=== PATIENT | male | born 1995 ===

== ENCOUNTER 2017-02-01 14:34 | Emergency (ER) | payer BC, MEDICAID ==
[2017-02-01 15:05] VITALS: TEMP 97.8
--- NOTE | 2017-02-01 15:45 | ED PDOC ---
HPI: Male Pain Time Seen by Provider: 02/01/17 15:12 Chief Complaint (Nursing): Male Genitourinary Chief Complaint (Provider): penile rash History Per: Patient History/Exam Limitations: no limitations Onset/Duration Of Symptoms: Days (2) Current Symptoms Are (Timing): Still Present Associated Symptoms: denies: Fever, Chills, Nausea, Vomiting, Urinary Symptoms Additional Complaint(s): Had dysuria in December and treated as UTI with cipro. At that time he also had associated swelling and redness of glans penis. Improved after 1 day of cipro. He completed the course of cipro. Labwork also done by PMD which was negative for HIV, Chlamydia, Gonorrhea. He developed "thrush" while on cipro and was also given one dose of diflucan and it resolved. Over last 3 days feels like throat symptoms coming back, and noted red bumps to glans near meatus, but no pain or burning. PMD Katarina Past Medical History Reviewed: Historical Data, Nursing Documentation, Vital Signs Vital Signs: Last Vital Signs Temp 97.8 F 02/01/17 14:58 Pulse 78 02/01/17 14:58 Resp 15 02/01/17 14:58 BP 177/176 H 02/01/17 14:58 Pulse Ox 100 02/01/17 14:58 - Medical History PMH: No Chronic Diseases - Surgical History Surgical History: No Surg Hx - Family History Family History: States: No Known Family Hx - Allergies Allergies/Adverse Reactions: Allergies Allergy/AdvReac Type Severity Reaction Status Date / Time ciprofloxacin [From Cipro] Allergy RASH Verified 02/01/17 14:58 Review of Systems ROS Statement: Except As Marked, All Systems Reviewed And Found Negative (and as per HPI) ENT: Positive for: Throat Pain Gastrointestinal: Negative for: Nausea, Vomiting, Abdominal Pain, Diarrhea Skin: Positive for: Lesions Physical Exam - Reviewed Nursing Documentation Reviewed: Yes Vital Signs Reviewed: Yes - Physical Exam Appears: Positive for: Non-toxic, No Acute Distress Head Exam: Positive for: ATRAUMATIC, NORMOCEPHALIC Skin: Positive for: Warm, Dry ENT: Positive for: Pharynx Is (clear). Negative for: Pharyngeal Erythema, Tonsillar Exudate, Tonsillar Swelling Gastrointestinal/Abdominal: Positive for: Soft. Negative for: Tenderness Male Genital Exam: Positive for: normal genitalia, normal prostate, lesions ( pinpoint flesh colored lesions on glans near meatus, appears to normal skin topography). Negative for: bleeding, erythema, testicular tenderness (R), testicular tenderness (L), urethral discharge Lymphatic: Negative for: Adenopathy Neurologic/Psych: Positive for: Alert. Negative for: Motor/Sensory Deficits - ECG O2 Sat by Pulse Oximetry: 100 Disposition - Clinical Impression Clinical Impression: Penile lesion Counseled Patient/Family Regarding: Studies Performed, Diagnosis, Need For Followup - Disposition Referrals: Sincere Bray [Family Provider] - 02/04/17 Disposition: Routine/Home Disposition Time: 16:30 Condition: FAIR Additional Instructions: YOUR URINE TODAY WAS NORMAL YOU WILL BE CONTACTED IF YOUR BLOOD RESULTS ARE ABNORMAL. PLEASE FOLLOW UP WITH YOUR DOCTOR IN 2-3 DAYS. Instructions: Dysuria (ED)
[2017-02-01 16:19] LABS: RBC URINE 2 /hpf (0-3); URINE BILIRUBIN NEGATIVE (NEGATIVE); URINE BLOOD NEGATIVE (NEGATIVE); URINE COLOR YELLOW (YELLOW); URINE GLUCOSE (UA) NEG (Normal); URINE KETONE NEGATIVE (NEGATIVE); URINE LEUKOCYTE ESTERASE NEG Leu/uL (Negative); URINE PROTEIN NEGATIVE (NEGATIVE); URINE UROBILINOGEN 0.2-1.0 mg/dL (0.2-1.0); WBC URINE 1 /hpf (0-5)
[2017-02-01 16:45] VITALS: BP 139/81; PULSE 76; RESP 20
[2017-02-02 00:14] VITALS: O2SAT 100
== END 2017-02-01 16:45 | disposition home or self-care (01) ==
LOC: H.ER 14:34
DX: N48.9 Disorder of penis, unspecified (principal)

== ENCOUNTER 2017-02-28 23:08 | Emergency (ER) | payer BC, MEDICAID ==
[2017-02-28 23:31] VITALS: BP 147/94; PULSE 77; RESP 18; TEMP 98.9; O2SAT 100
--- NOTE | 2017-03-01 00:48 | ED PDOC ---
HPI: Male Pain Time Seen by Provider: 02/28/17 23:15 Chief Complaint (Nursing): Male Genitourinary Chief Complaint (Provider): rash History Per: Patient History/Exam Limitations: no limitations Associated Symptoms: denies: Fever, Chills, Nausea, Vomiting, Diarrhea, Loss Of Appetite, Back Pain, Chest Pain, Constipation, Urinary Symptoms Additional Complaint(s): 21yo M in ED for eval of rash to penis x 3 months-states that he was dx with yeast infection to glans of penis. had negative STI testing since his last sexual intercounter. no fever, pelvic pain nausea or vomiting. denies back pain or hemautira. admits to itching to penis and occasional burning with urination. Past Medical History Reviewed: Historical Data, Nursing Documentation, Vital Signs Vital Signs: Last Vital Signs Temp 98.9 F 02/28/17 23:28 Pulse 77 02/28/17 23:28 Resp 18 02/28/17 23:28 BP 147/94 H 02/28/17 23:28 Pulse Ox 100 02/28/17 23:28 - Medical History PMH: No Chronic Diseases - Family History Family History: States: No Known Family Hx - Home Medications Home Medications: Ambulatory Orders Medication Instructions Recorded Fluconazole [Diflucan] 150 mg PO ONCE #4 tab 03/01/17 Nystatin [Mycostatin Cream] 1 applic EXT DAILY #1 tube 03/01/17 - Allergies Allergies/Adverse Reactions: Allergies Allergy/AdvReac Type Severity Reaction Status Date / Time apple Allergy ANAPHYLAXIS Verified 02/28/17 23:28 ciprofloxacin [From Cipro] Allergy RASH Verified 02/01/17 14:58 Review of Systems ROS Statement: Except As Marked, All Systems Reviewed And Found Negative Constitutional: Negative for: Fever, Chills Genitourinary Male: Positive for: Rash. Negative for: Dysuria, Frequency, Incontinence, Hematuria, Penile Discharge, Scrotal Pain, Penile Pain Physical Exam - Reviewed Nursing Documentation Reviewed: Yes Vital Signs Reviewed: Yes - Physical Exam Appears: Positive for: Well, Non-toxic, No Acute Distress Skin: Positive for: Normal Color, Warm, DRY Cardiovascular/Chest: Positive for: Regular Rate, Rhythm Respiratory: Positive for: CNT, Normal Breath Sounds Gastrointestinal/Abdominal: Positive for: Normal Exam, Bowel Sounds, Soft. Negative for: Tenderness Male Genital Exam: Positive for: other (pt is not circumsised. ). Negative for : bleeding, epididymal tenderness, erythema, hernia mass, high riding prostate, inguinal tenderness, lesions, scrotum tenderness (R), scrotum tenderness (L), testicular tenderness (R), testicular tenderness (L), urethral discharge Back: Positive for: Normal Inspection Neurologic/Psych: Positive for: Alert, Oriented - ECG O2 Sat by Pulse Oximetry: 100 Medical Decision Making Medical Decision Making: pt most liekly with yeast infection-will treat with diflucan and nystain with f.u with urologist. Disposition - Clinical Impression Clinical Impression: Yeast infection - Patient ED Disposition Is Patient to be Admitted: No Counseled Patient/Family Regarding: Diagnosis, Need For Followup, Rx Given - Disposition Referrals: Sincere Bray [Primary Care Provider] - Disposition: Routine/Home Disposition Time: 00:50 Condition: STABLE Prescriptions: Fluconazole [Diflucan] 150 mg PO ONCE #4 tab Nystatin [Mycostatin Cream] 1 applic EXT DAILY #1 tube Instructions: Skin Yeast Infection (ED)
== END 2017-03-01 01:07 | disposition home or self-care (01) ==
LOC: H.ER 23:08
DX: B37.9 Candidiasis, unspecified (principal)

== ENCOUNTER 2017-05-01 07:07 | Inpatient (IN) | payer BC, MEDICAID ==
[2017-05-01] MEDS ORDERED: Sodium Chloride 0.9% 1,000 ML IV STA (07:46)
--- NOTE | 2017-05-01 08:43 | ED PDOC ---
HPI: Abdomen Time Seen by Provider: 05/01/17 07:15 Chief Complaint (Nursing): Abdominal Pain Chief Complaint (Provider): Abdominal pain History Per: Patient History/Exam Limitations: no limitations Onset/Duration Of Symptoms: Hrs (5 hours ago) Current Symptoms Are (Timing): Still Present Severity: Severe Additional Complaint(s): 21 y/o male presents to the ED with severe central abdominal pain, radiating to the epigastric, onset of 5 hours. Patient has experienced several episodes of vomiting and has been unable to move his bowels since yesterday. He also reports of having similar pain in the past. He denies fever, urinary symptoms, or back pain. PCP: Sincere Bray Past Medical History Reviewed: Historical Data, Nursing Documentation, Vital Signs Vital Signs: Last Vital Signs Temp 97.1 F L 05/01/17 07:16 Pulse 82 05/01/17 07:16 Resp 18 05/01/17 07:22 BP 152/92 H 05/01/17 07:16 Pulse Ox 100 05/01/17 10:26 - Medical History PMH: No Chronic Diseases - Surgical History Surgical History: No Surg Hx - Family History Family History: States: Unknown Family Hx - Social History Current smoker - smoking cessation education provided: No Ex-Smoker (has not smoked in the last 12 months): No Alcohol: None Drugs: Denies - Home Medications Home Medications: Ambulatory Orders Medication Instructions Recorded No Known Home Med 05/01/17 - Allergies Allergies/Adverse Reactions: Allergies Allergy/AdvReac Type Severity Reaction Status Date / Time apple Allergy ANAPHYLAXIS Verified 05/01/17 07:22 ciprofloxacin [From Cipro] Allergy RASH Verified 05/01/17 07:22 Review of Systems ROS Statement: Except As Marked, All Systems Reviewed And Found Negative Constitutional: Negative for: Fever Gastrointestinal: Positive for: Vomiting, Abdominal Pain (central, radiating to epigastirc), Constipation Genitourinary Male: Negative for: Dysuria Musculoskeletal: Negative for: Back Pain Physical Exam - Reviewed Nursing Documentation Reviewed: Yes Vital Signs Reviewed: Yes - Physical Exam Appears: Positive for: Non-toxic, In Acute Distress (in painful distress) Head Exam: Positive for: ATRAUMATIC Skin: Positive for: Normal Color, Warm Eye Exam: Positive for: Normal appearance, EOMI, PERRL ENT: Positive for: Normal ENT Inspection Neck: Positive for: Normal, Painless ROM, Supple Cardiovascular/Chest: Positive for: Regular Rate, Rhythm. Negative for: Murmur Respiratory: Positive for: Normal Breath Sounds. Negative for: Respiratory Distress Gastrointestinal/Abdominal: Positive for: Normal Exam, Tenderness (diffusely tender), Guarding Back: Positive for: Normal Inspection Extremity: Positive for: Normal ROM. Negative for: Pedal Edema, Deformity Neurologic/Psych: Positive for: Alert, Oriented. Negative for: Motor/Sensory Deficits - Laboratory Results Result Diagrams: 05/01/17 08:25 05/01/17 08:25 - ECG O2 Sat by Pulse Oximetry: 100 (RA) Pulse Ox Interpretation: Normal Medical Decision Making Medical Decision Making: Time: --07:44 Impression: --21 y/o with abdominal pain Plan: --CT ABD & Pelvis IV Contrast --Labs --Ed Urine Dip --Partial Thrombobin Time --Prothrombin time --chest X-ray --Morphine 2mg IV --Iv fluids --Zofran 4mg --Glucose, Blood, POC --Urinalysis labs reviewed, reveal elevated WBC, normal Hgb, lipase and LFTs CT: Accession No. : [id number] Patient Name / ID : FER NEGRON / [id number] Exam Date : 05/01/2017 09:40:09 ( Approved ) Study Comment : Sex / Age : M / 21Y Creator : Nick Naik MD Dictator : Nick Naik MD Toddler Caregiver : Home Care Giver : Nick Naik MD Approver2 : Report Date : 05/01/2017 10:23:43 My Comment : PROCEDURE: CT Abdomen and Pelvis with contrast HISTORY: diffuse severe abd pain, guarding COMPARISON: None. TECHNIQUE: Contrast dose: 95 mL Omnipaque 300 Radiation dose: Total exam DLP = 730.24 mGy-cm. This CT exam was performed using one or more of the following dose reduction techniques: Automated exposure control, adjustment of the mA and/or kV according to patient size, and/or use of iterative reconstruction technique. FINDINGS: LOWER THORAX: Unremarkable. LIVER: Unremarkable. No gross lesion or ductal dilatation. GALLBLADDER AND BILE DUCTS: Unremarkable. PANCREAS: Unremarkable. No gross lesion or ductal dilatation. SPLEEN: Unremarkable. ADRENALS: Unremarkable. No mass. KIDNEYS AND URETERS: Unremarkable. No hydronephrosis. No solid mass. VASCULATURE: Unremarkable. No aortic aneurysm. BOWEL: There is probable mechanical small bowel obstruction. Dilated loops of small bowel with liquified content are seen with a transition point identified in the lower central abdomen, best visualized on images 103-106. This is in the mid ileum. Collapsed ileal loops are seen distal to this point. There is edema of the ileal mesentery. l there is mild sigmoid diverticulosis. There is no evidence of diverticulitis. There are no other abnormal bowel loops identified. APPENDIX: Normal appendix. PERITONEUM: Unremarkable. No free fluid. No free air. LYMPH NODES: Shotty subcentimeter lymph nodes are identified within the small bowel mesenteric and medial to the cecum and ascending colon. There is no retroperitoneal or pelvic lymphadenopathy. BLADDER: Unremarkable. REPRODUCTIVE: Normal prostate BONES: No acute fracture. OTHER FINDINGS: None. IMPRESSION: Findings consistent with mechanical small bowel obstruction of the mid ileal region. No evidence of bowel perforation. No other acute abnormality identified. NGT ordered Reassess- required additional pain medicine. 1030a d/w surgical product sales consultant 1050a d/w attending surgeon Dr Grant, clinical presentation, lab results and CT findings discussed. He recommended GI consult for possibility crohns disease. Scribe Attestation: Documented by Albert Lema acting as a scribe for Dmitriy Alcocer DO. Disposition - Disposition
[2017-05-01 08:45] LABS: BASO # 0.1 K/uL (0.0-0.2); BASO % 0.4 % (0.0-2.0); EOS % 0.1 % (0.0-4.0); HEMOGLOBIN 15.7 g/dL (12.0-18.0); LYMPH # 0.9 K/uL (1.0-4.3); MEAN CELL VOLUME 87.7 fl (80.0-94.0); MEAN CORPUSCULAR HEMOGLOBIN 30.5 pg (27.0-31.0); MEAN CORPUSCULAR HGB CONC 34.8 g/dL (33.0-37.0); MEAN PLATELET VOLUME 9.5 fl (7.2-11.7); MONO # 0.5 K/uL (0.0-0.8); MONO % 2.9 % (0.0-10.0); NEUT # 14.4 K/uL (1.8-7.0); NEUT % 90.6 % (50.0-75.0); PLATELET COUNT 226 K/uL (130-400); RBC 5.13 Mil/uL (4.40-5.90); RED CELL DISTRIBUTION WIDTH 12.7 % (11.5-14.5); WHITE BLOOD COUNT 15.9 K/uL (4.8-10.8)
[2017-05-01 08:54] LABS: ALB/GLOB RATIO 1.6 (1.0-2.1); ALBUMIN 4.9 g/dL (3.5-5.0); ALT/SGPT 43 U/L (21-72); AST/SGOT 16 U/L (17-59); BLOOD UREA NITROGEN 11 mg/dl (9-20); CALCIUM 9.5 mg/dL (8.4-10.2); GFR AFRICAN-AMERICAN > 60; GFR NON-AFRICAN AMERICAN > 60; LIPASE 57 U/L (23-300)
[2017-05-01 09:15] LABS: SQUAMOUS EPITHIAL 1 /hpf (0-5); URINE BACTERIA RARE (<OCC); URINE BILIRUBIN NEGATIVE (NEGATIVE); URINE BLOOD NEGATIVE (NEGATIVE); URINE CLARITY SLIGHTY-CLOUDY (Clear); URINE COLOR YELLOW (YELLOW); URINE GLUCOSE (UA) NEG (Normal); URINE LEUKOCYTE ESTERASE NEG Leu/uL (Negative); URINE NITRATE NEGATIVE (NEGATIVE); URINE PROTEIN NEGATIVE (NEGATIVE); URINE UROBILINOGEN 0.2-1.0 mg/dL (0.2-1.0)
[2017-05-01] MEDS ORDERED: Iohexol 300 100 ML IJ ONE (09:28)
[2017-05-01] MEDS ORDERED: Sodium Chloride 0.9% 50 ML IV ONE (09:29)
--- NOTE | 2017-05-01 10:25 | CT ---
PROCEDURE: CT Abdomen and Pelvis with contrast HISTORY: diffuse severe abd pain, guarding COMPARISON: None. TECHNIQUE: Contrast dose: 95 mL Omnipaque 300 Radiation dose: Total exam DLP = 730.24 mGy-cm. This CT exam was performed using one or more of the following dose reduction techniques: Automated exposure control, adjustment of the mA and/or kV according to patient size, and/or use of iterative reconstruction technique. FINDINGS: LOWER THORAX: Unremarkable. LIVER: Unremarkable. No gross lesion or ductal dilatation. GALLBLADDER AND BILE DUCTS: Unremarkable. PANCREAS: Unremarkable. No gross lesion or ductal dilatation. SPLEEN: Unremarkable. ADRENALS: Unremarkable. No mass. KIDNEYS AND URETERS: Unremarkable. No hydronephrosis. No solid mass. VASCULATURE: Unremarkable. No aortic aneurysm. BOWEL: There is probable mechanical small bowel obstruction. Dilated loops of small bowel with liquified content are seen with a transition point identified in the lower central abdomen, best visualized on images 103-106. This is in the mid ileum. Collapsed ileal loops are seen distal to this point. There is edema of the ileal mesentery. l there is mild sigmoid diverticulosis. There is no evidence of diverticulitis. There are no other abnormal bowel loops identified. APPENDIX: Normal appendix. PERITONEUM: Unremarkable. No free fluid. No free air. LYMPH NODES: Shotty subcentimeter lymph nodes are identified within the small bowel mesenteric and medial to the cecum and ascending colon. There is no retroperitoneal or pelvic lymphadenopathy. BLADDER: Unremarkable. REPRODUCTIVE: Normal prostate BONES: No acute fracture. OTHER FINDINGS: None. IMPRESSION: Findings consistent with mechanical small bowel obstruction of the mid ileal region. No evidence of bowel perforation. No other acute abnormality identified.
[2017-05-01 10:52] LABS: BANDS 1 % (0-2); GIANT PLATELETS PRESENT; LARGE PLATELETS PRESENT; LYMPHOCYTE 10 % (20-50); MONOCYTE 4 % (0-10); NEUTROPHIL 85 % (42-75); PLATELET ESTIMATE NORMAL (NORMAL); TOTAL CELLS COUNTED 100
--- NOTE | 2017-05-01 11:32 | CP.PCM.CON ---
History of Present Illness - History of Present Illness History of Present Illness: General Surgery: Dr Grant pt is a 21M with no PMH who presents with sudden onset abdominal pain. Pt states he was sleeping and at 2AM was awoken by intense cramping abdominal pain , located mainly in the suprapubic region by radiating up to the epigastrium, 10 /10. Pt states he also had 3 episodes of emesis, primarily consisting of saliva with minimal chunks of previously eaten food. He denies any bile in the vomit but does state there were small streaks of blood after the 2nd time. He had one episode of emesis in the ED that again was just saliva. Pt states he last had a BM yesterday morning, and was passing gas throughout the day. Denies any f/c, sob or chest pain. Per ED physician pt was in extreme pain and guarding upon presentation. He has since been medicated for his discomfort. Pt reports pain is still present but now a 4/10. He was able to doze off after pain medication. PMH: none PSH: none No fam hx of GI related issues including but not limited to Crohn's, UC or cancer. Review of Systems - Review of Systems All systems: reviewed and no additional remarkable complaints except (as per HPI ) Past Patient History - Past Social History Alcohol: None Drugs: Denies - PSYCHIATRIC Hx Substance Use: No - SURGICAL HISTORY Hx Surgeries: No - ANESTHESIA Hx Anesthesia: No Meds Allergies/Adverse Reactions: Allergies Allergy/AdvReac Type Severity Reaction Status Date / Time apple Allergy ANAPHYLAXIS Verified 05/01/17 07:22 ciprofloxacin [From Cipro] Allergy RASH Verified 05/01/17 07:22 - Medications Medications: Current Medications Lactated Ringer's (Lactated Ringer's) 1,000 mls @ 100 mls/hr IV .Q10H SERENA Morphine Sulfate (Morphine) 4 mg IVP Q4 PRN PRN Reason: Pain, severe (8-10) Morphine Sulfate (Morphine) 2 mg IVP Q4 PRN PRN Reason: Pain, moderate (4-7) Ondansetron HCl (Zofran Inj) 4 mg IVP Q6 PRN PRN Reason: Nausea/Vomiting Physical Exam - Constitutional Appears: Non-toxic, No Acute Distress - Head Exam Head Exam: NORMAL INSPECTION - ENT Exam ENT Exam: Mucous Membranes Moist - Respiratory Exam Respiratory Exam: absent: Accessory Muscle Use, Respiratory Distress - Cardiovascular Exam Cardiovascular Exam: REGULAR RHYTHM. absent: Tachycardia - GI/Abdominal Exam GI & Abdominal Exam: Distended (minimally), Soft, Tenderness (suprapubic and RLQ mainly). absent: Firm, Guarding, Hernia, Mass, Rebound, Rigid - Rectal Exam Rectal Exam: Deferred - Extremities Exam Extremities exam: Negative for: calf tenderness, pedal edema - Back Exam Back exam: absent: CVA tenderness (L), CVA tenderness (R) - Neurological Exam Neurological exam: Alert, Oriented x3 - Psychiatric Exam Psychiatric exam: Normal Affect, Normal Mood - Skin Skin Exam: Dry, Intact, Normal Color, Warm Results - Vital Signs Recent Vital Signs: Last Vital Signs Temp 97.1 F L 05/01/17 07:16 Pulse 82 05/01/17 07:16 Resp 18 05/01/17 07:22 BP 152/92 H 05/01/17 07:16 Pulse Ox 100 05/01/17 10:57 - Labs Result Diagrams: 05/01/17 08:25 05/01/17 08:25 Labs: Laboratory Results - last 24 hr 05/01/17 05/01/17 05/01/17 08:25 08:25 08:25 WBC 15.9 H RBC 5.13 Hgb 15.7 Hct 45.0 MCV 87.7 MCH 30.5 MCHC 34.8 RDW 12.7 Plt Count 226 MPV 9.5 Neut % (Auto) 90.6 H Lymph % (Auto) 6.0 L Swisher % (Auto) 2.9 Eos % (Auto) 0.1 Baso % (Auto) 0.4 Neut # 14.4 H Lymph # 0.9 L Swisher # 0.5 Eos # 0.0 Baso # 0.1 Neutrophils % (Manual) 85 H Band Neutrophils % 1 Lymphocytes % (Manual) 10 L Monocytes % (Manual) 4 Platelet Estimate Normal Large Platelets Present Giant Platelets Present PT 11.0 INR 1.0 APTT 28.0 Sodium 136 Potassium 3.7 Chloride 99 Carbon Dioxide 27 Anion Gap 14 BUN 11 Creatinine 0.7 L Est GFR ( Amer) > 60 Est GFR (Non-Af Amer) > 60 Random Glucose 138 H Calcium 9.5 Total Bilirubin 0.8 AST 16 L ALT 43 Alkaline Phosphatase 85 Total Protein 8.0 Albumin 4.9 Globulin 3.1 Albumin/Globulin Ratio 1.6 Lipase 57 Urine Color Urine Clarity Urine pH Ur Specific [place] Urine Protein Urine Glucose (UA) Urine Ketones Urine Blood Urine Nitrate Urine Bilirubin Urine Urobilinogen Ur Leukocyte Esterase Urine Microscopic WBC Ur Squamous Epith Cells Urine Bacteria 05/01/17 08:25 WBC RBC Hgb Hct MCV MCH MCHC RDW Plt Count MPV Neut % (Auto) Lymph % (Auto) Swisher % (Auto) Eos % (Auto) Baso % (Auto) Neut # Lymph # Swisher # Eos # Baso # Neutrophils % (Manual) Band Neutrophils % Lymphocytes % (Manual) Monocytes % (Manual) Platelet Estimate Large Platelets Giant Platelets PT INR APTT Sodium Potassium Chloride Carbon Dioxide Anion Gap BUN Creatinine Est GFR ( Amer) Est GFR (Non-Af Amer) Random Glucose Calcium Total Bilirubin AST ALT Alkaline Phosphatase Total Protein Albumin Globulin Albumin/Globulin Ratio Lipase Urine Color Yellow Urine Clarity Slighty-cloudy Urine pH 6.0 Ur Specific [place] 1.018 Urine Protein Negative Urine Glucose (UA) Neg Urine Ketones Negative Urine Blood Negative Urine Nitrate Negative Urine Bilirubin Negative Urine Urobilinogen 0.2-1.0 Ur Leukocyte Esterase Neg Urine Microscopic WBC 1 Ur Squamous Epith Cells 1 Urine Bacteria Rare Assessment & Plan - Assessment and Plan (Free Text) Assessment: 21M with undifferentiated abdominal pain; ddx enteritis vs Crohn's vs sbo Plan: pt last had BM yesterday and emesis has been non-billous; unlikely fully obstructed -will hold off on NGT unless further vomiting occurs -NPO, IV Fluids consideration to first episode of Crohn's should be given; especially with stricture noted on CT -recommend GI consult for Crohn's work-up and possible colonoscopy in the future No immediate surgical intervention planned d/w Dr Rudy Alfaro, PGY3
[2017-05-01] MEDS: Lactated Ringer's 1,000 ML IV SCH ×2 (12:13→20:34)
--- NOTE | 2017-05-01 13:03 | RAD ---
HISTORY: SOB COMPARISON: No prior. FINDINGS: LUNGS: No active pulmonary disease. PLEURA: No significant pleural effusion identified, no pneumothorax apparent. CARDIOVASCULAR: Normal. OSSEOUS STRUCTURES: No significant abnormalities. VISUALIZED UPPER ABDOMEN: Normal. OTHER FINDINGS: None. IMPRESSION: No active disease.
[2017-05-02 07:19] LABS: HEMOGLOBIN 15.9 g/dL (12.0-18.0); MEAN CELL VOLUME 87.9 fl (80.0-94.0); MEAN CORPUSCULAR HEMOGLOBIN 30.3 pg (27.0-31.0); MEAN CORPUSCULAR HGB CONC 34.4 g/dL (33.0-37.0); RBC 5.25 Mil/uL (4.40-5.90); RED CELL DISTRIBUTION WIDTH 12.6 % (11.5-14.5); WHITE BLOOD COUNT 11.5 K/uL (4.8-10.8)
[2017-05-02 07:41] LABS: ALB/GLOB RATIO 1.4 (1.0-2.1); ALBUMIN 4.4 g/dL (3.5-5.0); ALT/SGPT 36 U/L (21-72); AST/SGOT 13 U/L (17-59); BLOOD UREA NITROGEN 8 mg/dl (9-20); CALCIUM 9.5 mg/dL (8.4-10.2); GFR AFRICAN-AMERICAN > 60; GFR NON-AFRICAN AMERICAN > 60
[2017-05-02] MEDS: Lactated Ringer's 1,000 ML IV SCH ×2 (08:27→17:10)
--- NOTE | 2017-05-02 17:26 | CP.PCM.PN ---
Subjective - Date & Time of Evaluation Date of Evaluation: 05/02/17 Time of Evaluation: 11:15 - Subjective Subjective: No fever abd pain better + nausea but no vomiting today + flatus at about 10am no BM no CP no SOB denies diarrhea nor constipation Objective - Vital Signs/Intake and Output Vital Signs (last 24 hours): Temp Pulse Resp BP Pulse Ox 98.8 F 89 18 141/84 97 05/02/17 16:00 05/02/17 16:00 05/02/17 16:00 05/02/17 16:00 05/02/17 16:00 - Medications Medications: Current Medications Lactated Ringer's (Lactated Ringer's) 1,000 mls @ 100 mls/hr IV .Q10H SERENA Last Admin: 05/02/17 17:10 Dose: 100 mls/hr Morphine Sulfate (Morphine) 4 mg IVP Q4 PRN PRN Reason: Pain, severe (8-10) Morphine Sulfate (Morphine) 2 mg IVP Q4 PRN PRN Reason: Pain, moderate (4-7) Last Admin: 05/02/17 17:08 Dose: 2 mg Ondansetron HCl (Zofran Inj) 4 mg IVP Q6 PRN PRN Reason: Nausea/Vomiting Last Admin: 05/01/17 17:17 Dose: 4 mg Pantoprazole Sodium (Protonix Inj) 40 mg IVP DAILY [facility] Last Admin: 05/02/17 10:49 Dose: 40 mg - Labs Labs: 05/02/17 05:30 05/02/17 05:30 PT 11.0 Seconds (9.8-13.1) 05/01/17 08:25 INR 1.0 (0.9-1.2) 05/01/17 08:25 APTT 28.0 Seconds (25.6-37.1) 05/01/17 08:25 - Constitutional Appears: No Acute Distress - Head Exam Head Exam: NORMAL INSPECTION, NORMOCEPHALIC - Eye Exam Eye Exam: EOMI, Normal appearance, PERRL Pupil Exam: NORMAL ACCOMODATION - ENT Exam ENT Exam: Mucous Membranes Moist, Normal External Ear Exam - Neck Exam Neck Exam: Full ROM. absent: Meningismus - Respiratory Exam Respiratory Exam: NORMAL BREATHING PATTERN. absent: Rales, Wheezes, Respiratory Distress - Cardiovascular Exam Cardiovascular Exam: REGULAR RHYTHM, +S1, +S2 - GI/Abdominal Exam GI & Abdominal Exam: Soft, Tenderness, Hypoactive Bowel Sounds - Extremities Exam Extremities Exam: Full ROM, Normal Capillary Refill. absent: Calf Tenderness - Back Exam Back Exam: absent: CVA tenderness (L), CVA tenderness (R) - Neurological Exam Neurological Exam: Alert, Awake, CN II-XII Intact, Normal Gait, Oriented x3 Neuro motor strength exam: Left Upper Extremity: 5, Right Upper Extremity: 5, Left Lower Extremity: 5, Right Lower Extremity: 5 - Psychiatric Exam Psychiatric exam: Normal Affect, Normal Mood - Skin Skin Exam: Dry, Normal Color, Warm Assessment and Plan (1) SBO (small bowel obstruction) Status: Acute - Assessment and Plan (Free Text) Assessment: 21 y/o gent, no significant PMH, came in bec of abd pain accompanied by nausea and vomiting. Denies fever, no hx of abd surgery, no previous hx of abd pains , diarrhea nor constipation. CT of abd: Mechanical small bowel obstruction 1. SBO - unclear etiology - NPO - NGT not inserted , pt no longer =vomiting -IVF hydration - GI consult - Surgery consult - Pain mgt 2. Leukocytosis prob reactive - pt afebrile - will cont to monitor
--- NOTE | 2017-05-02 17:38 | CP.PCM.HP ---
History of Present Illness - History of Present Illness History of Present Illness: CC: Abdominal pain This is a 21 year old male with no significant past medical history who came into the ED complaining of sudden onset abdominal pain located in the epigastrium, starting 5 hours before arrival to the ED. The patient states that the pain is severe, sharp, and constant. He says the pain is associated with nonbilious emesis. He vomited several times, once with blood tinged emesis. He says he noticed only trace amount of blood the first time he vomited and afterwards did not noticed any blood. He reports having similar pain like this in the past. He denies any associated fever, cp, sob, back pain, or urinary sx. In the ED, the patient was unable to tolerate any po. A CT scan was done revealing mechanical SBO located in the ileum. Surgery saw the patient and stated there was no need for NG tube at this time and will continue to monitor. Dr. Cruz was called for GI as well as there was concern for possible Crohn' s stricture. The patient has never had abdominal surgery in the past. Present on Admission - Present on Admission Any Indicators Present on Admission: No Review of Systems - Review of Systems Review of Systems: A 12 point review of systems was conducted and found to be negative other than what was mentioned in the HPI. Past Patient History - Infectious Disease Hx of Infectious Diseases: None - Past Medical History & Family History Past Medical History?: No - Past Social History Smoking Status: Never Smoked - CARDIAC Hx Cardiac Disorders: No - PULMONARY Hx Respiratory Disorders: No - NEUROLOGICAL Hx Neurological Disorder: No - HEENT Hx HEENT Problems: No - RENAL Hx Chronic Kidney Disease: No - ENDOCRINE/METABOLIC Hx Endocrine Disorders: No - HEMATOLOGICAL/ONCOLOGICAL Hx Blood Disorders: No - INTEGUMENTARY Hx Dermatological Problems: No - MUSCULOSKELETAL/RHEUMATOLOGICAL Hx Musculoskeletal Disorders: No Hx Falls: No - GASTROINTESTINAL Hx Gastrointestinal Disorders: No - GENITOURINARY/GYNECOLOGICAL Hx Genitourinary Disorders: No - PSYCHIATRIC Hx Psychophysiologic Disorder: No Hx Substance Use: No - SURGICAL HISTORY Hx Surgeries: No - ANESTHESIA Hx Anesthesia: No Meds Allergies/Adverse Reactions: Allergies Allergy/AdvReac Type Severity Reaction Status Date / Time apple Allergy ANAPHYLAXIS Verified 05/01/17 07:22 ciprofloxacin [From Cipro] Allergy RASH Verified 05/01/17 07:22 Physical Exam - Additional Findings Additional findings: Physical exam: Constitutional- cooperative, awake, alert Head- NCAT, PERRL Eye- PERRL, EOMI ENT- normal exam, MMM. Neck- normal inspection, supple, no JVD Respiratory- CTAB, no wheezes rales rhonchi Cardiovascular- RRR, +S1, +S2 no MRG GI/Abdominal- + Tenderness to palpation of the epigastrium. hypoactive bowel sounds, soft, no mass, no hsm Skin- warm, dry. + Multiple tattoos Extremities Exam- normal capillary refill, normal inspection Neurological Exam- alert, awake, oriented Psych- normal mood, normal affect Results - Vital Signs Recent Vital Signs: Last Vital Signs Temp 98.8 F 05/02/17 16:00 Pulse 89 05/02/17 16:00 Resp 18 05/02/17 16:00 BP 141/84 05/02/17 16:00 Pulse Ox 97 05/02/17 16:00 - Labs Result Diagrams: 05/02/17 05:30 05/02/17 05:30 Labs: Laboratory Results - last 24 hr 05/02/17 05/02/17 05:30 05:30 WBC 11.5 H RBC 5.25 Hgb 15.9 Hct 46.1 MCV 87.9 MCH 30.3 MCHC 34.4 RDW 12.6 Plt Count 212 Sodium 135 Potassium 4.0 Chloride 98 Carbon Dioxide 30 Anion Gap 11 BUN 8 L Creatinine 0.7 L Est GFR ( Amer) > 60 Est GFR (Non-Af Amer) > 60 Random Glucose 114 H Calcium 9.5 Total Bilirubin 1.5 H AST 13 L ALT 36 Alkaline Phosphatase 75 Total Protein 7.4 Albumin 4.4 Globulin 3.1 Albumin/Globulin Ratio 1.4 Assessment & Plan - Assessment and Plan (Free Text) Plan: ASSESSMENT/PLAN 1) Mechanical SBO, r/o Crohn's, other causes of SBO - Admit to med/surg - NPO status - GI consultation with Dr. Cruz - Surgical consultation with Dr. Grant - IV fluids, LR @ 100 cc/hour - Morphine PRN for pain - Zofran PRN for N/V - Protonix 40 mg iv daily 2) DVT prophylaxis - SCDs - Date & Time Date: 05/01/17 Time: 20:00
--- NOTE | 2017-05-02 23:23 | CP.PCM.CON ---
History of Present Illness - History of Present Illness History of Present Illness: 21 yo male presenting with severe midabdominal pain and vomiting. Also for one day had difficulty moving bowels. Similar events have happened before. Review of Systems - Constitutional Constitutional: absent: Chills - EENT Eyes: absent: Blurred Vision Nose/Mouth/Throat: absent: Epistaxis - Cardiovascular Cardiovascular: absent: Chest Pain - Genitourinary Genitourinary: As Per HPI Past Patient History - Infectious Disease Hx of Infectious Diseases: None - Past Medical History & Family History Past Medical History?: No - Past Social History Smoking Status: Never Smoked - CARDIAC Hx Cardiac Disorders: No - PULMONARY Hx Respiratory Disorders: No - NEUROLOGICAL Hx Neurological Disorder: No - HEENT Hx HEENT Problems: No - RENAL Hx Chronic Kidney Disease: No - ENDOCRINE/METABOLIC Hx Endocrine Disorders: No - HEMATOLOGICAL/ONCOLOGICAL Hx Blood Disorders: No - INTEGUMENTARY Hx Dermatological Problems: No - MUSCULOSKELETAL/RHEUMATOLOGICAL Hx Musculoskeletal Disorders: No Hx Falls: No - GASTROINTESTINAL Hx Gastrointestinal Disorders: No - GENITOURINARY/GYNECOLOGICAL Hx Genitourinary Disorders: No - PSYCHIATRIC Hx Psychophysiologic Disorder: No Hx Substance Use: No - SURGICAL HISTORY Hx Surgeries: No - ANESTHESIA Hx Anesthesia: No Meds Allergies/Adverse Reactions: Allergies Allergy/AdvReac Type Severity Reaction Status Date / Time apple Allergy ANAPHYLAXIS Verified 05/01/17 07:22 ciprofloxacin [From Cipro] Allergy RASH Verified 05/01/17 07:22 - Medications Medications: Current Medications Lactated Ringer's (Lactated Ringer's) 1,000 mls @ 100 mls/hr IV .Q10H [facility] Last Admin: 05/02/17 17:10 Dose: 100 mls/hr Morphine Sulfate (Morphine) 4 mg IVP Q4 PRN PRN Reason: Pain, severe (8-10) Morphine Sulfate (Morphine) 2 mg IVP Q4 PRN PRN Reason: Pain, moderate (4-7) Last Admin: 05/02/17 17:08 Dose: 2 mg Ondansetron HCl (Zofran Inj) 4 mg IVP Q6 PRN PRN Reason: Nausea/Vomiting Last Admin: 05/01/17 17:17 Dose: 4 mg Pantoprazole Sodium (Protonix Inj) 40 mg IVP DAILY [facility] Last Admin: 05/02/17 10:49 Dose: 40 mg Physical Exam - Head Exam Head Exam: ATRAUMATIC - Eye Exam Eye Exam: Normal appearance, PERRL - Respiratory Exam Respiratory Exam: Clear to Auscultation Bilateral - Cardiovascular Exam Cardiovascular Exam: Diastolic murmur, REGULAR RHYTHM, +S1, +S2 - GI/Abdominal Exam GI & Abdominal Exam: Normal Bowel Sounds. absent: Distended Results - Vital Signs Recent Vital Signs: Last Vital Signs Temp 98.8 F 05/02/17 16:00 Pulse 89 05/02/17 16:00 Resp 18 05/02/17 16:00 BP 141/84 05/02/17 16:00 Pulse Ox 97 05/02/17 16:00 - Labs Result Diagrams: 05/02/17 05:30 05/02/17 05:30 Labs: Laboratory Results - last 24 hr 05/02/17 05/02/17 05:30 05:30 WBC 11.5 H RBC 5.25 Hgb 15.9 Hct 46.1 MCV 87.9 MCH 30.3 MCHC 34.4 RDW 12.6 Plt Count 212 Sodium 135 Potassium 4.0 Chloride 98 Carbon Dioxide 30 Anion Gap 11 BUN 8 L Creatinine 0.7 L Est GFR ( Amer) > 60 Est GFR (Non-Af Amer) > 60 Random Glucose 114 H Calcium 9.5 Total Bilirubin 1.5 H AST 13 L ALT 36 Alkaline Phosphatase 75 Total Protein 7.4 Albumin 4.4 Globulin 3.1 Albumin/Globulin Ratio 1.4 Assessment & Plan (1) Abdominal pain Assessment and Plan: Infectious enteritis vs possible Crohns of midileum. Clinically doesn't appear obstructed. Follow clinically. MR enterography if symptoms persist. Maintain well hydrated. Status: Acute
[2017-05-03] MEDS: Lactated Ringer's 1,000 ML IV SCH ×5 (05:07→23:25)
--- NOTE | 2017-05-03 09:06 | CP.PCM.PN ---
<Michelle Miller - Last Filed: 05/03/17 09:04> Subjective - Date & Time of Evaluation Date of Evaluation: 05/03/17 Time of Evaluation: 06:05 - Subjective Subjective: General surgery progress note for Dr. Grant-Michelle Miller, PGY-1 Pt S & E this AM. Pt reports continued ab pain/bloating since yesterday. Last BM Fri AM prior to admission, usual habit is daily. Small amount of flatus x 1 yesterday. Admits to some nausea, no emesis since Sat AM. States he had similar episode a few yrs ago that resolved w/rectal decompression. Denies F & C. Per nursing - pt requiring pain meds overnight. Denies hx of ab surgery. Objective - Vital Signs/Intake and Output Vital Signs (last 24 hours): Temp Pulse Resp BP Pulse Ox 98.1 F 78 20 138/77 94 L 05/03/17 08:14 05/03/17 08:14 05/03/17 08:14 05/03/17 08:14 05/03/17 08:14 - Medications Medications: Current Medications Lactated Ringer's (Lactated Ringer's) 1,000 mls @ 100 mls/hr IV .Q10H [facility] Last Admin: 05/03/17 05:10 Dose: 100 mls/hr Morphine Sulfate (Morphine) 4 mg IVP Q4 PRN PRN Reason: Pain, severe (8-10) Last Admin: 05/03/17 05:11 Dose: 4 mg Morphine Sulfate (Morphine) 2 mg IVP Q4 PRN PRN Reason: Pain, moderate (4-7) Last Admin: 05/02/17 17:08 Dose: 2 mg Ondansetron HCl (Zofran Inj) 4 mg IVP Q6 PRN PRN Reason: Nausea/Vomiting Last Admin: 05/01/17 17:17 Dose: 4 mg Pantoprazole Sodium (Protonix Inj) 40 mg IVP DAILY [facility] Last Admin: 05/02/17 10:49 Dose: 40 mg - Labs Labs: 05/02/17 05:30 05/02/17 05:30 PT 11.0 Seconds (9.8-13.1) 05/01/17 08:25 INR 1.0 (0.9-1.2) 05/01/17 08:25 APTT 28.0 Seconds (25.6-37.1) 05/01/17 08:25 - Constitutional Appears: Non-toxic, No Acute Distress - Head Exam Head Exam: ATRAUMATIC, NORMAL INSPECTION, NORMOCEPHALIC - Eye Exam Eye Exam: EOMI, Normal appearance - ENT Exam ENT Exam: Mucous Membranes Moist, Normal Exam - Neck Exam Neck Exam: Full ROM, Normal Inspection - Respiratory Exam Respiratory Exam: Clear to Ausculation Bilateral, NORMAL BREATHING PATTERN - Cardiovascular Exam Cardiovascular Exam: REGULAR RHYTHM, +S1, +S2 - GI/Abdominal Exam GI & Abdominal Exam: Distended (mild), Soft, Tenderness (diffuse, mild), Hypoactive Bowel Sounds. absent: Firm, Guarding, Rigid, Hernia - Extremities Exam Extremities Exam: Normal Inspection - Neurological Exam Neurological Exam: Alert, Awake, CN II-XII Intact, Oriented x3 - Psychiatric Exam Psychiatric exam: Normal Affect, Normal Mood - Skin Skin Exam: Dry, Intact, Normal Color, Warm Assessment and Plan - Assessment and Plan (Free Text) Assessment: 21M w/ab pain likely 2/2 pSBO Plan: NPO IVF Pain control Anti-emetics Monitor for bowel function Serial ab exams GI following Further recs as per attending Will DW attending Angela, PGY-1 <Arash Grant - Last Filed: 05/03/17 11:39> Objective - Vital Signs/Intake and Output Vital Signs (last 24 hours): Temp Pulse Resp BP Pulse Ox 98.1 F 78 20 138/77 94 L 05/03/17 08:14 05/03/17 08:14 05/03/17 08:14 05/03/17 08:14 05/03/17 08:14 - Medications Medications: Current Medications Lactated Ringer's (Lactated Ringer's) 1,000 mls @ 100 mls/hr IV .Q10H [facility] Last Admin: 05/03/17 05:10 Dose: 100 mls/hr Morphine Sulfate (Morphine) 4 mg IVP Q4 PRN PRN Reason: Pain, severe (8-10) Last Admin: 05/03/17 05:11 Dose: 4 mg Morphine Sulfate (Morphine) 2 mg IVP Q4 PRN PRN Reason: Pain, moderate (4-7) Last Admin: 05/02/17 17:08 Dose: 2 mg Ondansetron HCl (Zofran Inj) 4 mg IVP Q6 PRN PRN Reason: Nausea/Vomiting Last Admin: 05/01/17 17:17 Dose: 4 mg Pantoprazole Sodium (Protonix Inj) 40 mg IVP DAILY [facility] Last Admin: 05/03/17 09:46 Dose: 40 mg - Labs Labs: 05/02/17 05:30 05/02/17 05:30 PT 11.0 Seconds (9.8-13.1) 05/01/17 08:25 INR 1.0 (0.9-1.2) 05/01/17 08:25 APTT 28.0 Seconds (25.6-37.1) 05/01/17 08:25 Assessment and Plan - Assessment and Plan (Free Text) Plan: will get KUB today
--- NOTE | 2017-05-03 14:16 | RAD ---
HISTORY: obstruction COMPARISON: CT of the abdomen and pelvis with IV contrast performed 05/01/17 FINDINGS: BOWEL: Prominent nonspecific air-filled loops of small bowel; appearance remains concerning for obstruction. Mild constipation. BONES: No acute osseous abnormality is detected. OTHER FINDINGS: None. IMPRESSION: Prominent nonspecific air-filled loops of small bowel; appearance remains concerning for obstruction. Mild constipation.
--- NOTE | 2017-05-03 14:35 | CP.PCM.PN ---
Subjective - Date & Time of Evaluation Date of Evaluation: 05/03/17 Time of Evaluation: 14:00 - Subjective Subjective: No fever vomited once today NGT placement attempted however pt unable to tolerate procedure so didnt want it placed still with abd pain no flatus nor BM today no CP no SOB Objective - Vital Signs/Intake and Output Vital Signs (last 24 hours): Temp Pulse Resp BP Pulse Ox 98.1 F 78 20 138/77 94 L 05/03/17 08:14 05/03/17 08:14 05/03/17 08:14 05/03/17 08:14 05/03/17 08:14 - Medications Medications: Current Medications Lactated Ringer's (Lactated Ringer's) 1,000 mls @ 100 mls/hr IV .Q10H [facility] Last Admin: 05/03/17 05:10 Dose: 100 mls/hr Morphine Sulfate (Morphine) 4 mg IVP Q4 PRN PRN Reason: Pain, severe (8-10) Last Admin: 05/03/17 12:24 Dose: 4 mg Morphine Sulfate (Morphine) 2 mg IVP Q4 PRN PRN Reason: Pain, moderate (4-7) Last Admin: 05/03/17 14:23 Dose: 2 mg Ondansetron HCl (Zofran Inj) 4 mg IVP Q6 PRN PRN Reason: Nausea/Vomiting Last Admin: 05/03/17 12:24 Dose: 4 mg Pantoprazole Sodium (Protonix Inj) 40 mg IVP DAILY [facility] Last Admin: 05/03/17 09:46 Dose: 40 mg - Labs Labs: 05/02/17 05:30 05/02/17 05:30 PT 11.0 Seconds (9.8-13.1) 05/01/17 08:25 INR 1.0 (0.9-1.2) 05/01/17 08:25 APTT 28.0 Seconds (25.6-37.1) 05/01/17 08:25 - Constitutional Appears: No Acute Distress - Head Exam Head Exam: NORMAL INSPECTION, NORMOCEPHALIC - Eye Exam Eye Exam: EOMI, Normal appearance, PERRL Pupil Exam: NORMAL ACCOMODATION - ENT Exam ENT Exam: Mucous Membranes Moist, Normal External Ear Exam - Neck Exam Neck Exam: Full ROM. absent: Meningismus - Respiratory Exam Respiratory Exam: NORMAL BREATHING PATTERN. absent: Rales, Wheezes, Respiratory Distress - Cardiovascular Exam Cardiovascular Exam: REGULAR RHYTHM, +S1, +S2 - GI/Abdominal Exam GI & Abdominal Exam: Soft, Tenderness, Hypoactive Bowel Sounds - Extremities Exam Extremities Exam: Full ROM, Normal Capillary Refill. absent: Calf Tenderness - Back Exam Back Exam: absent: CVA tenderness (L), CVA tenderness (R) - Neurological Exam Neurological Exam: Alert, Awake, CN II-XII Intact, Normal Gait, Oriented x3 Neuro motor strength exam: Left Upper Extremity: 5, Right Upper Extremity: 5, Left Lower Extremity: 5, Right Lower Extremity: 5 - Psychiatric Exam Psychiatric exam: Normal Affect, Normal Mood - Skin Skin Exam: Dry, Normal Color, Warm Assessment and Plan (1) SBO (small bowel obstruction) Status: Acute - Assessment and Plan (Free Text) Assessment: 21 y/o gent, no significant PMH, except for 1 previous of similar episode ( SBO ) years ago, came in bec of abd pain accompanied by nausea and vomiting. Denies fever, no hx of abd surgery, no previous hx of abd pains, diarrhea nor constipation. CT of abd: Mechanical small bowel obstruction 1. SBO - unclear etiology ? Crohns - NPO -NGT placement attempted however pt is unable to tolerate NGT -IVF hydration - GI consult - Surgery consult - Pain mgt 2. Leukocytosis prob reactive - pt afebrile - will cont to monitor
--- NOTE | 2017-05-03 16:49 | RAD ---
HISTORY: NGT placement COMPARISON: Chest x-ray performed 05/01/17 TECHNIQUE: Chest, one view. FINDINGS: Examination limited by habitus. Nasogastric tube extends to the expected location of the stomach. LUNGS: No focal consolidation. Please note that chest x-ray has limited sensitivity for the detection of pulmonary masses. PLEURA: No significant pleural effusion identified. No definite pneumothorax . CARDIOVASCULAR: The cardiomediastinal silhouette appears within normal limits of size. OSSEOUS STRUCTURES: No acute osseous abnormality identified. VISUALIZED UPPER ABDOMEN: Air-filled dilated loops of bowel noted in the left upper quadrant. OTHER FINDINGS: None. IMPRESSION: Nasogastric tube extends expected location of stomach. Re-identified air-filled loops of bowel within the left upper quadrant.
[2017-05-04] MEDS: Lactated Ringer's 1,000 ML IV SCH ×2 (05:00→16:56)
[2017-05-04 06:32] LABS: MEAN CELL VOLUME 86.4 fl (80.0-94.0); MEAN CORPUSCULAR HEMOGLOBIN 30.9 pg (27.0-31.0); MEAN CORPUSCULAR HGB CONC 35.8 g/dL (33.0-37.0); RBC 5.27 Mil/uL (4.40-5.90); RED CELL DISTRIBUTION WIDTH 12.4 % (11.5-14.5); WHITE BLOOD COUNT 15.3 K/uL (4.8-10.8)
[2017-05-04 06:40] LABS: ALB/GLOB RATIO 1.3 (1.0-2.1); ALBUMIN 4.3 g/dL (3.5-5.0); ALT/SGPT 31 U/L (21-72); AST/SGOT 13 U/L (17-59); BLOOD UREA NITROGEN 12 mg/dl (9-20); CALCIUM 9.7 mg/dL (8.4-10.2); GFR AFRICAN-AMERICAN > 60; GFR NON-AFRICAN AMERICAN > 60
[2017-05-04 07:15] LABS: HEMOGLOBIN 16.5 g/dL (12.0-18.0)
--- NOTE | 2017-05-04 07:19 | CP.PCM.PN ---
<Adam Alfaro - Last Filed: 05/04/17 07:21> Subjective - Date & Time of Evaluation Date of Evaluation: 05/04/17 Time of Evaluation: 07:16 - Subjective Subjective: General Surgery: Dr Grant Pt S&E. Had NGT placed yesterday w/ 200cc output. Around 430AM pt removed NGT and would not allow it to be replaced. Still having abdominal pain mainly lower quadrants. Also still complaining of nausea. Has not had any emesis since NGT fell out. Has been OOB and ambulating. Denies passing flatus. Objective - Vital Signs/Intake and Output Vital Signs (last 24 hours): Temp Pulse Resp BP Pulse Ox 98.6 F 98 H 19 133/82 99 05/04/17 00:12 05/04/17 00:12 05/04/17 00:12 05/04/17 00:12 05/04/17 00:12 Intake and Output: 05/04/17 05/04/17 06:59 18:59 Output Total 50 Balance -50 - Medications Medications: Current Medications Lactated Ringer's (Lactated Ringer's) 1,000 mls @ 100 mls/hr IV .Q10H [facility] Last Admin: 05/04/17 05:00 Dose: 100 mls/hr Morphine Sulfate (Morphine) 4 mg IVP Q4 PRN PRN Reason: Pain, severe (8-10) Last Admin: 05/03/17 12:24 Dose: 4 mg Morphine Sulfate (Morphine) 2 mg IVP Q4 PRN PRN Reason: Pain, moderate (4-7) Last Admin: 05/04/17 06:31 Dose: 2 mg Ondansetron HCl (Zofran Inj) 4 mg IVP Q6 PRN PRN Reason: Nausea/Vomiting Last Admin: 05/03/17 18:43 Dose: 4 mg Pantoprazole Sodium (Protonix Inj) 40 mg IVP DAILY [facility] Last Admin: 05/03/17 09:46 Dose: 40 mg - Labs Labs: 05/04/17 05:55 05/04/17 05:55 PT 11.0 Seconds (9.8-13.1) 05/01/17 08:25 INR 1.0 (0.9-1.2) 05/01/17 08:25 APTT 28.0 Seconds (25.6-37.1) 05/01/17 08:25 - Constitutional Appears: Non-toxic, No Acute Distress - Head Exam Head Exam: NORMAL INSPECTION - ENT Exam ENT Exam: Mucous Membranes Dry - Respiratory Exam Respiratory Exam: absent: Accessory Muscle Use, Respiratory Distress - Cardiovascular Exam Cardiovascular Exam: REGULAR RHYTHM. absent: Tachycardia - GI/Abdominal Exam GI & Abdominal Exam: Distended, Soft, Tenderness (b/l lower quadrants ). absent : Firm, Guarding, Rigid, Hernia, Mass - Neurological Exam Neurological Exam: Alert, Awake, Oriented x3 - Psychiatric Exam Psychiatric exam: Normal Affect, Normal Mood Assessment and Plan - Assessment and Plan (Free Text) Assessment: 21M w/ partial SBO Plan: cont to monitor pt refusing NGT - agrees to replace if vomits again will consider enema once d/w attending as KUB shows significant constipation will d/w Dr Rudy Alfaro, PGY3 <Robbie Howard - Last Filed: 05/04/17 16:43> Subjective - Date & Time of Evaluation Time of Evaluation: 16:05 - Subjective Subjective: Patient was seen and examined at the bedside. Agree with resident's note above. Objective - Vital Signs/Intake and Output Vital Signs (last 24 hours): Temp Pulse Resp BP Pulse Ox 97.9 F 76 19 143/85 98 05/04/17 15:43 05/04/17 15:43 05/04/17 15:43 05/04/17 15:43 05/04/17 15:43 Intake and Output: 05/04/17 05/04/17 06:59 18:59 Output Total 50 Balance -50 - Medications Medications: Current Medications Barium Sulfate (Volumen 450 Ml) 450 ml PO Q20MIN [facility] Stop: 05/07/17 12:16 Lactated Ringer's (Lactated Ringer's) 1,000 mls @ 125 mls/hr IV .Q8H [facility] Morphine Sulfate (Morphine) 2 mg IVP Q4 PRN PRN Reason: Pain, moderate (4-7) Last Admin: 05/04/17 06:31 Dose: 2 mg Ondansetron HCl (Zofran Inj) 4 mg IVP Q6 PRN PRN Reason: Nausea/Vomiting Last Admin: 05/03/17 18:43 Dose: 4 mg Pantoprazole Sodium (Protonix Inj) 40 mg IVP DAILY [facility] Last Admin: 05/04/17 08:56 Dose: 40 mg - Labs Labs: 05/04/17 05:55 05/04/17 05:55 PT 11.0 Seconds (9.8-13.1) 05/01/17 08:25 INR 1.0 (0.9-1.2) 05/01/17 08:25 APTT 28.0 Seconds (25.6-37.1) 05/01/17 08:25 Assessment and Plan - Assessment and Plan (Free Text) Plan: - Keep NPO - IV fluids - pain control - Zofran prn - If vomits will needs NG tube replaced - If no change in clinical status will consider Diagnostic laparoscopy in am - Repeat labs in am - Will follow
--- NOTE | 2017-05-04 10:30 | CP.PCM.PN ---
Subjective - Date & Time of Evaluation Date of Evaluation: 05/04/17 Time of Evaluation: 10:21 - Subjective Subjective: Still with significant abdominal pain and received morphine this morning. Objective - Vital Signs/Intake and Output Vital Signs (last 24 hours): Temp Pulse Resp BP Pulse Ox 98.1 F 79 19 138/79 99 05/04/17 07:42 05/04/17 07:42 05/04/17 07:42 05/04/17 07:42 05/04/17 07:42 Intake and Output: 05/04/17 05/04/17 06:59 18:59 Output Total 50 Balance -50 - Medications Medications: Current Medications Lactated Ringer's (Lactated Ringer's) 1,000 mls @ 100 mls/hr IV .Q10H [facility] Last Admin: 05/04/17 05:00 Dose: 100 mls/hr Morphine Sulfate (Morphine) 4 mg IVP Q4 PRN PRN Reason: Pain, severe (8-10) Last Admin: 05/03/17 12:24 Dose: 4 mg Morphine Sulfate (Morphine) 2 mg IVP Q4 PRN PRN Reason: Pain, moderate (4-7) Last Admin: 05/04/17 06:31 Dose: 2 mg Ondansetron HCl (Zofran Inj) 4 mg IVP Q6 PRN PRN Reason: Nausea/Vomiting Last Admin: 05/03/17 18:43 Dose: 4 mg Pantoprazole Sodium (Protonix Inj) 40 mg IVP DAILY [facility] Last Admin: 05/04/17 08:56 Dose: 40 mg - Labs Labs: 05/04/17 05:55 05/04/17 05:55 PT 11.0 Seconds (9.8-13.1) 05/01/17 08:25 INR 1.0 (0.9-1.2) 05/01/17 08:25 APTT 28.0 Seconds (25.6-37.1) 05/01/17 08:25 - Constitutional Appears: No Acute Distress - Head Exam Head Exam: ATRAUMATIC - Eye Exam Eye Exam: Normal appearance - Neck Exam Neck Exam: Normal Inspection - Respiratory Exam Respiratory Exam: Clear to Ausculation Bilateral - Cardiovascular Exam Cardiovascular Exam: REGULAR RHYTHM, +S1, +S2 - GI/Abdominal Exam GI & Abdominal Exam: Soft, Tenderness Assessment and Plan (1) Abdominal pain Assessment & Plan: till with significant symtomatology. KUB shows dilation of proximal small bowel with relative paucity of intestinal air distal small bowel. Discussed with Dr. Wright and further imaging to evaluate small bowel should be considered and discussed with radiology. Options include CT or MR enterography. Status: Acute
--- NOTE | 2017-05-04 11:34 | CP.PCM.PN ---
Subjective - Date & Time of Evaluation Date of Evaluation: 05/04/17 Time of Evaluation: 11:15 - Subjective Subjective: No fever still with abd pain NGT accidentally pulled out - pt refused reinsertion no vomiting this am no flatus no BM no CP no SOB Objective - Vital Signs/Intake and Output Vital Signs (last 24 hours): Temp Pulse Resp BP Pulse Ox 98.1 F 79 19 138/79 99 05/04/17 07:42 05/04/17 07:42 05/04/17 07:42 05/04/17 07:42 05/04/17 07:42 Intake and Output: 05/04/17 05/04/17 06:59 18:59 Output Total 50 Balance -50 - Medications Medications: Current Medications Lactated Ringer's (Lactated Ringer's) 1,000 mls @ 100 mls/hr IV .Q10H REPLACED BY [facility] Last Admin: 05/04/17 05:00 Dose: 100 mls/hr Morphine Sulfate (Morphine) 2 mg IVP Q4 PRN PRN Reason: Pain, moderate (4-7) Last Admin: 05/04/17 06:31 Dose: 2 mg Ondansetron HCl (Zofran Inj) 4 mg IVP Q6 PRN PRN Reason: Nausea/Vomiting Last Admin: 05/03/17 18:43 Dose: 4 mg Pantoprazole Sodium (Protonix Inj) 40 mg IVP DAILY REPLACED BY [facility] Last Admin: 05/04/17 08:56 Dose: 40 mg - Labs Labs: 05/04/17 05:55 05/04/17 05:55 PT 11.0 Seconds (9.8-13.1) 05/01/17 08:25 INR 1.0 (0.9-1.2) 05/01/17 08:25 APTT 28.0 Seconds (25.6-37.1) 05/01/17 08:25 - Constitutional Appears: No Acute Distress - Head Exam Head Exam: NORMAL INSPECTION, NORMOCEPHALIC - Eye Exam Eye Exam: EOMI, Normal appearance, PERRL Pupil Exam: NORMAL ACCOMODATION - ENT Exam ENT Exam: Mucous Membranes Moist, Normal External Ear Exam - Neck Exam Neck Exam: Full ROM. absent: Meningismus - Respiratory Exam Respiratory Exam: NORMAL BREATHING PATTERN. absent: Rales, Wheezes, Respiratory Distress - Cardiovascular Exam Cardiovascular Exam: REGULAR RHYTHM, +S1, +S2 - GI/Abdominal Exam GI & Abdominal Exam: Soft, Tenderness, Hypoactive Bowel Sounds - Extremities Exam Extremities Exam: Full ROM, Normal Capillary Refill. absent: Calf Tenderness - Back Exam Back Exam: absent: CVA tenderness (L), CVA tenderness (R) - Neurological Exam Neurological Exam: Alert, Awake, CN II-XII Intact, Normal Gait, Oriented x3 Neuro motor strength exam: Left Upper Extremity: 5, Right Upper Extremity: 5, Left Lower Extremity: 5, Right Lower Extremity: 5 - Psychiatric Exam Psychiatric exam: Normal Affect, Normal Mood - Skin Skin Exam: Dry, Normal Color, Warm Assessment and Plan (1) SBO (small bowel obstruction) Status: Acute - Assessment and Plan (Free Text) Assessment: 21 y/o gent, no significant PMH, except for 1 previous of similar episode ( SBO ) years ago, came in bec of abd pain accompanied by nausea and vomiting. Denies fever, no hx of abd surgery, no previous hx of abd pains, diarrhea nor constipation. CT of abd: Mechanical small bowel obstruction 1. SBO - unclear etiology ? Crohns - NPO -NGT placed however NGT accidentally pulled out and pt refused reinsertion -IVF hydration - GI consult- discussed case rec CT Enterography - Surgery consult- possible Laparoscopy in am if SBO does not resolved - Pain mgt 2. Leukocytosis prob reactive - pt afebrile - will cont to monitor
[2017-05-04] MEDS ORDERED: Barium Sulfate Susp 0.1% w/v, 0.1% w/w 450 mL Bottle PO ONE (12:03)
[2017-05-04] MEDS ORDERED: Barium Sulfate Susp 0.1% w/v, 0.1% w/w 450 mL Bottle PO SCH (12:15)
[2017-05-05] MEDS: Lactated Ringer's 1,000 ML IV SCH ×3 (02:34→11:16)
[2017-05-05 06:24] LABS: BASO # 0.1 K/uL (0.0-0.2); BASO % 0.9 % (0.0-2.0); EOS % 0.2 % (0.0-4.0); HEMOGLOBIN 15.1 g/dL (12.0-18.0); LYMPH # 1.3 K/uL (1.0-4.3); MEAN CELL VOLUME 87.5 fl (80.0-94.0); MEAN CORPUSCULAR HEMOGLOBIN 30.8 pg (27.0-31.0); MEAN CORPUSCULAR HGB CONC 35.2 g/dL (33.0-37.0); MEAN PLATELET VOLUME 8.3 fl (7.2-11.7); MONO % 9.2 % (0.0-10.0); NEUT # 8.7 K/uL (1.8-7.0); NEUT % 77.7 % (50.0-75.0); NRBC % 0.2 % (0.0-0.0); RBC 4.89 Mil/uL (4.40-5.90); RED CELL DISTRIBUTION WIDTH 12.4 % (11.5-14.5); WHITE BLOOD COUNT 11.1 K/uL (4.8-10.8)
[2017-05-05 06:34] LABS: ALB/GLOB RATIO 1.4 (1.0-2.1); ALT/SGPT 27 U/L (21-72); AST/SGOT 12 U/L (17-59); BLOOD UREA NITROGEN 12 mg/dl (9-20); CALCIUM 9.2 mg/dL (8.4-10.2); GFR AFRICAN-AMERICAN > 60; GFR NON-AFRICAN AMERICAN > 60
--- NOTE | 2017-05-05 07:37 | CP.PCM.PN ---
Subjective - Date & Time of Evaluation Date of Evaluation: 05/05/17 Time of Evaluation: 09:45 - Subjective Subjective: Patient seen and examined bedside.Feeling better, pain is controlled .Not passing any flatus , burping . Denies any chest pain or SOB. Hemodynamically stable, afebrile No acute issues overnight. For diagnostic laparascopy today Objective - Vital Signs/Intake and Output Vital Signs (last 24 hours): Temp Pulse Resp BP Pulse Ox 98.7 F 83 19 136/81 99 05/05/17 00:01 05/05/17 00:01 05/05/17 00:01 05/05/17 00:01 05/05/17 00:01 - Medications Medications: Current Medications Barium Sulfate (Volumen 450 Ml) 450 ml PO Q20MIN [facility] Stop: 05/07/17 12:16 Lactated Ringer's (Lactated Ringer's) 1,000 mls @ 125 mls/hr IV .Q8H [facility] Last Admin: 05/05/17 02:34 Dose: 125 mls/hr Morphine Sulfate (Morphine) 2 mg IVP Q4 PRN PRN Reason: Pain, moderate (4-7) Last Admin: 05/05/17 02:34 Dose: 2 mg Ondansetron HCl (Zofran Inj) 4 mg IVP Q6 PRN PRN Reason: Nausea/Vomiting Last Admin: 05/03/17 18:43 Dose: 4 mg Pantoprazole Sodium (Protonix Inj) 40 mg IVP DAILY [facility] Last Admin: 05/04/17 08:56 Dose: 40 mg - Labs Labs: 05/05/17 05:45 05/05/17 05:45 PT 11.0 Seconds (9.8-13.1) 05/01/17 08:25 INR 1.0 (0.9-1.2) 05/01/17 08:25 APTT 28.0 Seconds (25.6-37.1) 05/01/17 08:25 - Constitutional Appears: Non-toxic, No Acute Distress - Head Exam Head Exam: ATRAUMATIC, NORMAL INSPECTION, NORMOCEPHALIC - Eye Exam Eye Exam: EOMI, Normal appearance, PERRL Pupil Exam: NORMAL ACCOMODATION - ENT Exam ENT Exam: Mucous Membranes Moist, Normal Exam - Neck Exam Neck Exam: Full ROM, Normal Inspection - Respiratory Exam Respiratory Exam: Clear to Ausculation Bilateral, NORMAL BREATHING PATTERN. absent: Rales, Rhonchi, Wheezes - Cardiovascular Exam Cardiovascular Exam: REGULAR RHYTHM, RRR, +S1, +S2. absent: JVD - GI/Abdominal Exam GI & Abdominal Exam: Soft, Normal Bowel Sounds. absent: Distended, Guarding, Tenderness, Rebound - Rectal Exam Rectal Exam: Deferred - Extremities Exam Extremities Exam: Full ROM, Normal Capillary Refill, Normal Inspection. absent : Pedal Edema - Back Exam Back Exam: NORMAL INSPECTION - Neurological Exam Neurological Exam: Alert, Awake, CN II-XII Intact, Oriented x3 - Psychiatric Exam Psychiatric exam: Normal Affect, Normal Mood - Skin Skin Exam: Dry, Intact, Normal Color, Warm Assessment and Plan - Assessment and Plan (Free Text) Assessment: 21 y/o male with no significant PMH, except for 1 episode of SBO years ago, came in because of abdominal , pain accompanied by nausea and vomiting. CT of abdomen showed Mechanical small bowel obstruction. Patient was admitted in med/surg, kept NPO , started IVF, pain medication , NGT placed . Surgery and GI consulted He is hemodynamically stable but unable to pas any flatus. NGT is out and he refused to reinsertion.For diagnostic laparascopy today. 1. SBO unclear etiology NGT placed however NGT accidentally pulled out and pt refused reinsertion continue IVF hydration, pain mangement and keep NPO Surgery and GI consult appreciated For laparascopy today 2. Leukocytosis prob reactive pt afebrile will cont to monitor 3. DVt porophylaxis SCD
--- NOTE | 2017-05-05 10:22 | CP.PCM.PN ---
Subjective - Date & Time of Evaluation Date of Evaluation: 05/05/17 Time of Evaluation: 10:21 - Subjective Subjective: Patient with ongoing abdominal pain and distention Objective - Vital Signs/Intake and Output Vital Signs (last 24 hours): Temp Pulse Resp BP Pulse Ox 98.2 F 65 20 139/81 99 05/05/17 08:31 05/05/17 08:31 05/05/17 08:31 05/05/17 08:31 05/05/17 08:31 - Medications Medications: Current Medications Barium Sulfate (Volumen 450 Ml) 450 ml PO Q20MIN [facility] Stop: 05/07/17 12:16 Lactated Ringer's (Lactated Ringer's) 1,000 mls @ 125 mls/hr IV .Q8H [facility] Last Admin: 05/05/17 09:06 Dose: Not Given Morphine Sulfate (Morphine) 2 mg IVP Q4 PRN PRN Reason: Pain, moderate (4-7) Last Admin: 05/05/17 02:34 Dose: 2 mg Ondansetron HCl (Zofran Inj) 4 mg IVP Q6 PRN PRN Reason: Nausea/Vomiting Last Admin: 05/03/17 18:43 Dose: 4 mg Pantoprazole Sodium (Protonix Inj) 40 mg IVP DAILY [facility] Last Admin: 05/05/17 09:06 Dose: 40 mg - Labs Labs: 05/05/17 05:45 05/05/17 05:45 PT 11.0 Seconds (9.8-13.1) 05/01/17 08:25 INR 1.0 (0.9-1.2) 05/01/17 08:25 APTT 28.0 Seconds (25.6-37.1) 05/01/17 08:25 - Head Exam Head Exam: ATRAUMATIC - Eye Exam Eye Exam: Normal appearance - ENT Exam ENT Exam: Normal Exam - Neck Exam Neck Exam: Full ROM - Respiratory Exam Respiratory Exam: Clear to Ausculation Bilateral - Cardiovascular Exam Cardiovascular Exam: REGULAR RHYTHM, +S1, +S2 - GI/Abdominal Exam GI & Abdominal Exam: Firm, Tenderness, Normal Bowel Sounds Assessment and Plan (1) Abdominal pain Assessment & Plan: Abdominal pain and bloating persists. For laparoscopy today to determine cause of partial bowel obstruction Status: Acute
[2017-05-05] MEDS ORDERED: Lidocaine 4% (Laryng-O-Jet) Kit MM ONE (11:49)
[2017-05-05] MEDS ORDERED: Rocuronium 10 mg/ml (5 ml) ONE (11:49)
[2017-05-05] MEDS ORDERED: Succinylcholine 200 mg/10 ml Inj IV ONE (11:49)
[2017-05-05] MEDS ORDERED: Propofol 10 mg/ml Inj (20 ML) ONE (11:49)
[2017-05-05] MEDS ORDERED: Lactated Ringer's 1,000 ML IV ONE ×2 (12:00→13:00)
[2017-05-05] MEDS ORDERED: ceFAZolin IV 1 gm in Dextrose 2 GM/100 ML BAG IVPB ONE (12:12)
[2017-05-05] MEDS ORDERED: Midazolam 2 MG/2 ML VIAL ONE (12:18)
[2017-05-05] MEDS ORDERED: Dexamethasone 4 mg/1 ml ONE (12:31)
[2017-05-05] MEDS ORDERED: Bupivacaine HCl 0.5% PF (30 ml) Inj ONE (13:11)
[2017-05-05] MEDS ORDERED: Bupivacaine 0.5% Inj(30mL) IJ ONE (13:15)
--- NOTE | 2017-05-05 13:18 | PCM.SURG1 ---
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
[2017-05-05] MEDS ORDERED: Lactated Ringer's 1,000 ML IV SCH (13:45)
[2017-05-05] MEDS: HYDROmorphone 0.5 mg/0.5 ml ISec IVP PRN ×3 (14:10→14:40)
--- NOTE | 2017-05-05 14:45 | OP ---
PROCEDURE DATE: 05/05/2017 OPERATION PERFORMED: Diagnostic laparoscopy, laparoscopic resection of Meckel's diverticulum and reduction of internal volvulus of small intestine. SURGEON: Arash Grant MD. ACCOUNTANCY PROFESSOR: Robbie Howard MD. SECOND ACCOUNTANCY PROFESSOR: Dr. Alfaro. TYPE OF ANESTHESIA: General anesthesia. OPERATIVE FINDINGS: Meckel's diverticulum with distal adhesions to the tip of the Meckel's, volvulus of the small bowel with 2 twists. ESTIMATED BLOOD LOSS: Minimal. DESCRIPTION OF PROCEDURE: The operative proceedings are as follows. The patient was taken to the operating room and placed supine on the operating table. After induction of general anesthesia, Rush catheter was placed and the abdomen was prepped and draped in a standard surgical fashion. Veress needle was used to insufflate the abdomen via the umbilicus. Once that was done, a left-sided 5 mm trocar was placed under direct vision. A second 5 mm left-sided trocar was placed. The patient was found to have a suspicious-looking area, which appeared to have a segment of bowel pressing over a second segment of bowel reminiscent of an internal hernia. The patient also had collapsed loops distal to the segment of bowel. A third 5 mm trocar was then placed into the abdomen and the bowel was inspected and run and the patient was found to have a window with bowel within the window. At that point, it was noted that there appeared to be 2 twists of the small bowel, so using the laparoscopic instruments, the bowel was pulled through to in order to release the twists and then pulled through a second time. Once the twists were removed from the bowel, the bowel was examined and held up and it was noted that the twists all happened about a Meckel's diverticulum. There was no evidence of inflammation of the diverticulum and the neck of the diverticulum was well defined. A EREN stapler was then introduced via an up sized 12 mm lateral trocar and this was fired across the base of the Meckel's. Case was taken not to encroach upon the small bowel. Once that was done, the small bowel was evaluated and was found to be in good condition. A second firing of the EREN was used in order to transect the fatty adhesions to the Meckel's and the mesentery of the Meckel's. Once that was done, the Meckel's was completely. The area was inspected. There was no evidence of bleeding. The Meckel's was placed into an EndoCatch bag. The Meckel's was then removed via the lateral 12 mm trocar site. The fascia was then closed using 0 Vicryl. The skin incisions were closed using 4-0 Monocryl. The patient was then awaken from Anesthesia, transported to recovery in satisfactory condition. Sponge, instrument and needle counts were correct at the end of the case. Arash Grant MD
--- NOTE | 2017-05-05 18:32 | PCM.RRT ---
CHAR HOUSE SUPERVISOR Nurse Assessment - Situation CHAR HOUSE SUPERVISOR Reason for Call: Hypotension CHAR HOUSE SUPERVISOR Called By: RN - IV IV Inserted during CHAR HOUSE SUPERVISOR?: No - Respiratory Oxygen Delivery Method: Room Air CPR started during CHAR HOUSE SUPERVISOR?: No - Recommendations CHAR HOUSE SUPERVISOR Level of Care Recommendations: Remain in current setting I.Reason for CHAR HOUSE SUPERVISOR - A) Acute Change in Patient: (Select all that apply): Staff member or family is worried about patient Subjective: 21 y/o man s/p diagnostic laparoscopy had CHAR HOUSE SUPERVISOR called 05/05/2017 @ 18:19 for near syncopal episode. Patient was attempting to urinate but was unable to do so supine and tried to get up on his own. Upon sitting up, his fiance became concerned that he looked pale and dizzy and sat back down. Patient recalls event and denies head trauma or LOC. Patient denies chest pain or SOB. - Neurological Status (Select all that apply): Alert, Responsive, Oriented, Verbal, Follows Commands - Respiratory Oxygen Delivery Method: Room Air - Constitutional Appears: No Acute Distress - Head Head Exam: ATRAUMATIC, NORMAL INSPECTION, NORMOCEPHALIC - Eyes Eye Exam: Normal appearance - Respiratory Exam Respiratory Exam: Clear to Ausculation Bilateral, NORMAL BREATHING PATTERN - Cardiovascular Exam Cardiovascular Exam: Tachycardia, REGULAR RHYTHM - Neurological Exam Neurological Exam: Alert, Awake, Oriented x3 - Extremities Exam Extremities Exam: Normal Inspection. absent: Calf Tenderness Plan - Assessment of Findings&Treatment Plan 21 y/o man s/p diagnostic laparoscopy had CHAR HOUSE SUPERVISOR called 05/05/2017 @ 18:19 for near syncopal episode. Most likely due to orthostatic hypotension. Patient's BP currently WNL and tachycardic in 102-106s. Patient is able to remain in current setting and have assistance with voiding or getting up when necessary. Patient is currently on LR @ 125mL/Hr.
[2017-05-06] MEDS: Lactated Ringer's 1,000 ML IV SCH ×6 (00:27→19:43)
[2017-05-06 06:45] LABS: HEMOGLOBIN 11.4 g/dL (12.0-18.0); MEAN CELL VOLUME 87.1 fl (80.0-94.0); MEAN CORPUSCULAR HEMOGLOBIN 30.9 pg (27.0-31.0); MEAN CORPUSCULAR HGB CONC 35.5 g/dL (33.0-37.0); RBC 3.69 Mil/uL (4.40-5.90); RED CELL DISTRIBUTION WIDTH 12.6 % (11.5-14.5); WHITE BLOOD COUNT 13.3 K/uL (4.8-10.8)
[2017-05-06 06:47] LABS: BLOOD UREA NITROGEN 12 mg/dl (9-20); CALCIUM 8.3 mg/dL (8.4-10.2); GFR AFRICAN-AMERICAN > 60; GFR NON-AFRICAN AMERICAN > 60
--- NOTE | 2017-05-06 10:05 | CP.PCM.PN ---
Subjective - Date & Time of Evaluation Date of Evaluation: 05/06/17 Time of Evaluation: 08:15 - Subjective Subjective: General surgery progress note for Dr. Uday Miller, PGY-1 Pt S & E at bedside. Pt reports some nausea, has tried to drink Marly bharat. Had flatus, no BM. Has not been OOB or ambulated yet. Pain controlled. Pt w/SR COMMUNITY MANAGER yesterday evening, medical team responded. Objective - Vital Signs/Intake and Output Vital Signs (last 24 hours): Temp Pulse Resp BP Pulse Ox 99.1 F 100 H 20 118/79 100 05/06/17 07:59 05/06/17 09:14 05/06/17 07:59 05/06/17 09:14 05/06/17 07:59 - Medications Medications: Current Medications Lactated Ringer's (Lactated Ringer's) 1,000 mls @ 125 mls/hr IV .Q8H [facility] Last Admin: 05/06/17 08:45 Dose: 125 mls/hr Lactated Ringer's (Lactated Ringer's) 1,000 mls @ 100 mls/hr IV .Q10H [facility] Morphine Sulfate (Morphine) 2 mg IVP Q4 PRN PRN Reason: Pain, moderate (4-7) Last Admin: 05/06/17 00:20 Dose: 2 mg Ondansetron HCl (Zofran Inj) 4 mg IVP Q6 PRN PRN Reason: Nausea/Vomiting Last Admin: 05/03/17 18:43 Dose: 4 mg Oxycodone/Acetaminophen (Percocet 5/325 Mg Tab) 1 tab PO Q4 PRN PRN Reason: Pain, moderate (4-7) Stop: 05/08/17 13:32 Pantoprazole Sodium (Protonix Inj) 40 mg IVP DAILY [facility] Last Admin: 05/06/17 08:45 Dose: 40 mg - Labs Labs: 05/06/17 05:45 05/06/17 05:45 PT 11.0 Seconds (9.8-13.1) 05/01/17 08:25 INR 1.0 (0.9-1.2) 05/01/17 08:25 APTT 28.0 Seconds (25.6-37.1) 05/01/17 08:25 - Constitutional Appears: Non-toxic, No Acute Distress - Head Exam Head Exam: ATRAUMATIC, NORMAL INSPECTION, NORMOCEPHALIC - Eye Exam Eye Exam: EOMI, Normal appearance - ENT Exam ENT Exam: Mucous Membranes Moist, Normal Exam - Neck Exam Neck Exam: Full ROM, Normal Inspection - Respiratory Exam Respiratory Exam: NORMAL BREATHING PATTERN - Cardiovascular Exam Cardiovascular Exam: REGULAR RHYTHM, +S1, +S2 - GI/Abdominal Exam GI & Abdominal Exam: Distended (mildly), Soft, Normal Bowel Sounds. absent: Firm, Guarding, Rigid, Tenderness - Neurological Exam Neurological Exam: Alert, Awake, CN II-XII Intact, Oriented x3 - Psychiatric Exam Psychiatric exam: Normal Affect, Normal Mood - Skin Skin Exam: Dry, Intact, Normal Color, Warm Additional comments: surgical incision sites with dermabond in place, no erythema or drainage noted Assessment and Plan - Assessment and Plan (Free Text) Assessment: 21M POD#1 s/p diagnostic laparoscopy with resection of Meckel's diverticulum, with [employer] COMMUNITY MANAGER yesterday evening due to dizziness, paleness. Plan: NPO for now OOBTC Ambulate Encourage IS use cont pain meds bolus Hgb 11.4 from 15.1 FU H/H Will HARITHA attending Angela, PGY-1
[2017-05-06 11:21] LABS: MEAN CELL VOLUME 87.3 fl (80.0-94.0); MEAN CORPUSCULAR HGB CONC 35.5 g/dL (33.0-37.0); RBC 3.54 Mil/uL (4.40-5.90); RED CELL DISTRIBUTION WIDTH 12.6 % (11.5-14.5); WHITE BLOOD COUNT 12.7 K/uL (4.8-10.8)
[2017-05-06] MEDS ORDERED: Lactated Ringer's 1,000 ML IV SCH (12:00)
[2017-05-06] MEDS: Oxycodone/Acetaminophen 5/325 mg Tab PO PRN ×2 (15:05→19:48)
--- NOTE | 2017-05-06 15:21 | CP.PCM.PN ---
Subjective - Date & Time of Evaluation Date of Evaluation: 05/06/17 Time of Evaluation: 10:30 - Subjective Subjective: Patient seen and examined bedside. Feeling sleepy and weak. Passing flatus and voiding freely. Able to tolerate liquid diet and jello today. With 1 episode of dizziness upon standing yesterday post op most likely vasovagal . Slight bleeding overnight from LLQ surgical incision Hemodynamically stable ,afebrile ,saturating 98-100% in RA HR 100 BP 118/79 Objective - Vital Signs/Intake and Output Vital Signs (last 24 hours): Temp Pulse Resp BP Pulse Ox 99.1 F 100 H 20 118/79 100 05/06/17 07:59 05/06/17 09:14 05/06/17 07:59 05/06/17 09:14 05/06/17 07:59 - Medications Medications: Current Medications Lactated Ringer's (Lactated Ringer's) 1,000 mls @ 125 mls/hr IV .Q8H [facility] Last Admin: 05/06/17 08:45 Dose: 125 mls/hr Lactated Ringer's (Lactated Ringer's) 1,000 mls @ 1,000 mls/hr IV .Q1H [facility] Last Admin: 05/06/17 12:09 Dose: 1,000 mls/hr Morphine Sulfate (Morphine) 2 mg IVP Q4 PRN PRN Reason: Pain, Mild (1-3) Morphine Sulfate (Morphine) 4 mg IVP Q4 PRN PRN Reason: Pain, severe (8-10) Ondansetron HCl (Zofran Inj) 4 mg IVP Q6 PRN PRN Reason: Nausea/Vomiting Last Admin: 05/03/17 18:43 Dose: 4 mg Oxycodone/Acetaminophen (Percocet 5/325 Mg Tab) 1 tab PO Q4 PRN PRN Reason: Pain, moderate (4-7) Stop: 05/08/17 13:32 Last Admin: 05/06/17 15:05 Dose: 1 tab - Labs Labs: 05/06/17 11:04 05/06/17 05:45 PT 11.0 Seconds (9.8-13.1) 05/01/17 08:25 INR 1.0 (0.9-1.2) 05/01/17 08:25 APTT 28.0 Seconds (25.6-37.1) 05/01/17 08:25 - Constitutional Appears: Non-toxic, No Acute Distress - Head Exam Head Exam: ATRAUMATIC, NORMAL INSPECTION, NORMOCEPHALIC - Eye Exam Eye Exam: EOMI, Normal appearance, PERRL Pupil Exam: NORMAL ACCOMODATION - ENT Exam ENT Exam: Mucous Membranes Moist, Normal Exam - Neck Exam Neck Exam: Full ROM, Normal Inspection - Respiratory Exam Respiratory Exam: Clear to Ausculation Bilateral, NORMAL BREATHING PATTERN. absent: Rhonchi, Wheezes, Respiratory Distress - Cardiovascular Exam Cardiovascular Exam: REGULAR RHYTHM, RRR, +S1, +S2. absent: JVD - GI/Abdominal Exam GI & Abdominal Exam: Soft, Normal Bowel Sounds. absent: Distended, Guarding, Rebound - Rectal Exam Rectal Exam: Deferred - Extremities Exam Extremities Exam: Full ROM, Normal Capillary Refill, Normal Inspection. absent : Calf Tenderness, Pedal Edema - Back Exam Back Exam: NORMAL INSPECTION - Neurological Exam Neurological Exam: Alert, Awake, CN II-XII Intact, Oriented x3 Additional comments: weak, tired , sleepy - Psychiatric Exam Psychiatric exam: Normal Affect - Skin Skin Exam: Dry, Normal Color, Warm Assessment and Plan - Assessment and Plan (Free Text) Assessment: 21 y/o male with no significant PMH, except for 1 episode of SBO years ago, came in because of abdominal , pain accompanied by nausea and vomiting. CT of abdomen showed Mechanical small bowel obstruction. Patient was admitted in med/surg, kept NPO , started IVF, pain medication , NGT placed . Surgery and GI consulted NGT accidentally came out and patient refused to have it re inserted . S/p diagnostic laparascopy yesterday with Meckel diverticulum resection . Today doing well, hemodynamically stable, afebrile , felli ngh waek, tired , sleepy. Pain is controlled, passing flatus. 1. SBO Most likely secondary to Meckel's diverticulum s/p diagnostic laparascopy and Meckel diverticulum resection passing flatus today and tolerating liquid diet. Will advance diet to regular Promote ambulation continue IVF and pain management incentive spirometry 2. Leukocytosis prob reactive pt afebrile will cont to monitor 3. DVt porophylaxis SCD
[2017-05-07] MEDS: Lactated Ringer's 1,000 ML IV SCH (00:04)
[2017-05-07 00:31] VITALS: O2SAT 100
[2017-05-07] MEDS ORDERED: Lidocaine 4% MPF 5 ML IJ ONE (05:45)
[2017-05-07 05:46] LABS: HEMOGLOBIN 9.9 g/dL (12.0-18.0); MEAN CELL VOLUME 87.2 fl (80.0-94.0); MEAN CORPUSCULAR HEMOGLOBIN 30.6 pg (27.0-31.0); MEAN CORPUSCULAR HGB CONC 35.1 g/dL (33.0-37.0); RBC 3.22 Mil/uL (4.40-5.90); RED CELL DISTRIBUTION WIDTH 12.3 % (11.5-14.5); WHITE BLOOD COUNT 12.3 K/uL (4.8-10.8)
[2017-05-07] MEDS ORDERED: Lidocaine 1% Inj (20ml) ONE (05:48)
[2017-05-07] MEDS ORDERED: EPINEPHrine 1 mg/ml (1:1000) Inj ONE (05:49)
--- NOTE | 2017-05-07 05:59 | PCM.RRT ---
UNDERWRITING SERVICE REPRESENTATIVE Nurse Assessment - Situation UNDERWRITING SERVICE REPRESENTATIVE Reason for Call: Hypotension UNDERWRITING SERVICE REPRESENTATIVE Called By: RN - IV IV Inserted during UNDERWRITING SERVICE REPRESENTATIVE?: No - Respiratory Oxygen Delivery Method: Room Air CPR started during UNDERWRITING SERVICE REPRESENTATIVE?: No - Recommendations UNDERWRITING SERVICE REPRESENTATIVE Level of Care Recommendations: Remain in current setting - Respiratory Oxygen Delivery Method: Room Air Plan - Assessment of Findings&Treatment Plan UNDERWRITING SERVICE REPRESENTATIVE TIME 05:38 UNDERWRITING SERVICE REPRESENTATIVE LOCATION 663-2 UNDERWRITING SERVICE REPRESENTATIVE ARRIVAL UNDERWRITING SERVICE REPRESENTATIVE REASON: bleeding from surgical wound S O UNDERWRITING SERVICE REPRESENTATIVE VITALS T: 99 BP: 146/81 HR:83 GEN: alert and oriented CARDIAC: s1s2 no murmurs RESP: clear bilaterally no wheezing ABDO: surgical wound at LLQ. UNDERWRITING SERVICE REPRESENTATIVE INTERVENTION: Dr. Fletcher was present to ensure stability of patient. Dr. Alfaro arrived to evaluate surgical site. Lidocaine 1% with epi was locally injected and suture placed for hemostasis. -Type and screen A/P 21yo M s/p laparoscopy with bowel resection on 05/05/2017. UNDERWRITING SERVICE REPRESENTATIVE OUTCOME UNDERWRITING SERVICE REPRESENTATIVE END 05:45 UNDERWRITING SERVICE REPRESENTATIVE LEADER: Dr. Kim Alfaro UNDERWRITING SERVICE REPRESENTATIVE RESIDENTS: Dr. Miller, PGY1 and Dr. Shane, PGY2
[2017-05-07 06:09] LABS: BLOOD UREA NITROGEN 9 mg/dl (9-20); CALCIUM 8.3 mg/dL (8.4-10.2); GFR AFRICAN-AMERICAN > 60; GFR NON-AFRICAN AMERICAN > 60
--- NOTE | 2017-05-07 08:16 | CP.PCM.PN ---
Subjective - Date & Time of Evaluation Date of Evaluation: 05/07/17 Time of Evaluation: 07:45 - Subjective Subjective: General surgery progress note for Dr. Kenya Miller, PGY-1 Pt S & E at bedside with attending. Pt reports some nausea with chicken last night. Continues with some ab pain. Denies N & V, F & C. Pt w/CATH LAB RADIOLOGY TECHNICIAN overnight due to bleeding from surgical site in LLQ- orthodontist vice president placed a suture with resolution of bleeding. Objective - Vital Signs/Intake and Output Vital Signs (last 24 hours): Temp Pulse Resp BP Pulse Ox 98.9 F 87 20 148/80 100 05/07/17 06:20 05/07/17 06:20 05/07/17 06:20 05/07/17 06:20 05/07/17 06:20 - Medications Medications: Current Medications Ondansetron HCl (Zofran Inj) 4 mg IVP Q6 PRN PRN Reason: Nausea/Vomiting Last Admin: 05/06/17 22:09 Dose: 4 mg Oxycodone/Acetaminophen (Percocet 5/325 Mg Tab) 1 tab PO Q4 PRN PRN Reason: Pain, moderate (4-7) Stop: 05/08/17 13:32 Last Admin: 05/06/17 19:48 Dose: 1 tab - Labs Labs: 05/07/17 05:15 05/07/17 05:15 PT 11.0 Seconds (9.8-13.1) 05/01/17 08:25 INR 1.0 (0.9-1.2) 05/01/17 08:25 APTT 28.0 Seconds (25.6-37.1) 05/01/17 08:25 - Constitutional Appears: Non-toxic, No Acute Distress - Head Exam Head Exam: ATRAUMATIC, NORMAL INSPECTION, NORMOCEPHALIC - Eye Exam Eye Exam: EOMI, Normal appearance - ENT Exam ENT Exam: Mucous Membranes Moist, Normal Exam - Neck Exam Neck Exam: Full ROM, Normal Inspection - Respiratory Exam Respiratory Exam: NORMAL BREATHING PATTERN - Cardiovascular Exam Cardiovascular Exam: REGULAR RHYTHM, +S1, +S2 - GI/Abdominal Exam GI & Abdominal Exam: Soft, Tenderness (over incision sites). absent: Distended , Firm, Guarding, Rigid - Exam Exam: Scrotal Swelling (with scrotal tenderness of right) - Extremities Exam Extremities Exam: Normal Inspection - Neurological Exam Neurological Exam: Alert, Awake, CN II-XII Intact, Oriented x3 - Psychiatric Exam Psychiatric exam: Normal Affect, Normal Mood - Skin Skin Exam: Dry, Intact, Normal Color, Warm Additional comments: pressure dressing in place over RLQ surgical site Assessment and Plan - Assessment and Plan (Free Text) Assessment: 21M POD#2 s/p diagnostic laparoscopy with resection of Meckel's diverticulum, with CATH LAB RADIOLOGY TECHNICIAN yesterday due to bleeding. Plan: Regular diet PO pain meds OOBTC Ambulate Encourage IS use D/C IVF Cont pain meds Hgb 9.9 from 11 possible partially diluational FU AM labs DW attending Angela, PGY-1
--- NOTE | 2017-05-07 14:47 | CP.PCM.PN ---
Subjective - Date & Time of Evaluation Date of Evaluation: 05/07/17 Time of Evaluation: 12:30 - Subjective Subjective: No fever pain controlled tolerated liquid diet + Flatus , no BM was started on Regular diet for breakast and pt vomited once no CP no SOB ambulating around the unit Objective - Vital Signs/Intake and Output Vital Signs (last 24 hours): Temp Pulse Resp BP Pulse Ox 99.2 F 81 20 146/78 100 05/07/17 08:25 05/07/17 08:25 05/07/17 08:25 05/07/17 08:25 05/07/17 08:25 - Medications Medications: Current Medications Ondansetron HCl (Zofran Inj) 4 mg IVP Q6 PRN PRN Reason: Nausea/Vomiting Last Admin: 05/07/17 11:31 Dose: 4 mg Oxycodone/Acetaminophen (Percocet 5/325 Mg Tab) 1 tab PO Q4 PRN PRN Reason: Pain, moderate (4-7) Stop: 05/08/17 13:32 Last Admin: 05/06/17 19:48 Dose: 1 tab - Labs Labs: 05/07/17 05:15 05/07/17 05:15 PT 11.0 Seconds (9.8-13.1) 05/01/17 08:25 INR 1.0 (0.9-1.2) 05/01/17 08:25 APTT 28.0 Seconds (25.6-37.1) 05/01/17 08:25 - Constitutional Appears: No Acute Distress - Head Exam Head Exam: NORMAL INSPECTION, NORMOCEPHALIC - Eye Exam Eye Exam: EOMI, Normal appearance, PERRL Pupil Exam: NORMAL ACCOMODATION - ENT Exam ENT Exam: Mucous Membranes Moist, Normal External Ear Exam - Neck Exam Neck Exam: Full ROM. absent: Meningismus - Respiratory Exam Respiratory Exam: NORMAL BREATHING PATTERN. absent: Rales, Wheezes, Respiratory Distress - Cardiovascular Exam Cardiovascular Exam: REGULAR RHYTHM, +S1, +S2 - GI/Abdominal Exam GI & Abdominal Exam: small Lap surgical scars, Soft, sl tenderness , normoactive Bowel Sounds - Extremities Exam Extremities Exam: Full ROM, Normal Capillary Refill. absent: Calf Tenderness - Back Exam Back Exam: absent: CVA tenderness (L), CVA tenderness (R) - Neurological Exam Neurological Exam: Alert, Awake, CN II-XII Intact, Normal Gait, Oriented x3 Neuro motor strength exam: Left Upper Extremity: 5, Right Upper Extremity: 5, Left Lower Extremity: 5, Right Lower Extremity: 5 - Psychiatric Exam Psychiatric exam: Normal Affect, Normal Mood - Skin Skin Exam: Dry, Normal Color, Warm Assessment and Plan (1) SBO (small bowel obstruction) Status: Acute (2) Meckels diverticulum Status: Acute - Assessment and Plan (Free Text) Assessment: 21 y/o male with no significant PMH, except for 1 episode of SBO almost 10 years ago, came in because of abdominal , pain accompanied by nausea and vomiting. CT of abdomen showed Mechanical small bowel obstruction. Patient was admitted in med/surg, kept NPO , started IVF, pain medication , NGT placed . Surgery and GI consulted NGT accidentally came out and patient refused to have it re inserted . S/p diagnostic Laparoscopy 05/05/17 : Meckel diverticulum resection done . Vomited this am after he was started on Regular diet. Diet changed to Liquid . Pain is controlled, passing flatus. 1. SBO Most likely secondary to Meckel's diverticulum s/p diagnostic laparascopy and Meckel diverticulum resection passing flatus today and tolerating liquid diet, Regular diet started - pt vomited once - diet changed back to Liquid Promote ambulation continue IVF and pain management incentive spirometry 2. Leukocytosis prob reactive pt afebrile will cont to monitor 3. DVt porophylaxis SCD
[2017-05-07] MEDS: Oxycodone/Acetaminophen 5/325 mg Tab PO PRN (22:32)
[2017-05-08 07:48] LABS: HEMOGLOBIN 9.6 g/dL (12.0-18.0); MEAN CORPUSCULAR HEMOGLOBIN 31.4 pg (27.0-31.0); MEAN CORPUSCULAR HGB CONC 36.5 g/dL (33.0-37.0); RBC 3.07 Mil/uL (4.40-5.90); RED CELL DISTRIBUTION WIDTH 12.4 % (11.5-14.5); WHITE BLOOD COUNT 10.1 K/uL (4.8-10.8)
[2017-05-08 08:09] LABS: ALB/GLOB RATIO 1.3 (1.0-2.1); ALBUMIN 3.4 g/dL (3.5-5.0); ALT/SGPT 36 U/L (21-72); AST/SGOT 14 U/L (17-59); BLOOD UREA NITROGEN 9 mg/dl (9-20); CALCIUM 8.5 mg/dL (8.4-10.2); GFR AFRICAN-AMERICAN > 60; GFR NON-AFRICAN AMERICAN > 60
[2017-05-08 08:50] VITALS: BP 130/73; PULSE 78; RESP 18; TEMP 99.2
--- NOTE | 2017-05-08 09:45 | CP.PCM.PN ---
Subjective - Date & Time of Evaluation Date of Evaluation: 05/08/17 Time of Evaluation: 09:00 - Subjective Subjective: General Surgery Dr. Grant Pt S&E @bedside. NAEO. Pt reports (+)BM and flatus overnight. Pt is very hungry and requesting more substantial food. Pt denies F/C, N/V. Pt is concerned about some scrotal swelling that occured post-operatively. Pt states swelling has improved since applying ice to the area but has not resolved completely. Objective - Vital Signs/Intake and Output Vital Signs (last 24 hours): Temp Pulse Resp BP Pulse Ox 99.2 F 78 18 130/73 100 05/08/17 08:50 05/08/17 08:50 05/08/17 08:50 05/08/17 08:50 05/08/17 08:50 - Medications Medications: Current Medications Ondansetron HCl (Zofran Inj) 4 mg IVP Q6 PRN PRN Reason: Nausea/Vomiting Last Admin: 05/07/17 22:32 Dose: 4 mg Oxycodone/Acetaminophen (Percocet 5/325 Mg Tab) 1 tab PO Q4 PRN PRN Reason: Pain, moderate (4-7) Stop: 05/08/17 13:32 Last Admin: 05/07/17 22:32 Dose: 1 tab - Labs Labs: 05/08/17 05:30 05/08/17 05:30 PT 11.0 Seconds (9.8-13.1) 05/01/17 08:25 INR 1.0 (0.9-1.2) 05/01/17 08:25 APTT 28.0 Seconds (25.6-37.1) 05/01/17 08:25 - Constitutional Appears: Non-toxic, No Acute Distress - Head Exam Head Exam: NORMAL INSPECTION - Eye Exam Eye Exam: Normal appearance - ENT Exam ENT Exam: Mucous Membranes Moist - Neck Exam Neck Exam: Normal Inspection - Respiratory Exam Respiratory Exam: NORMAL BREATHING PATTERN. absent: Accessory Muscle Use, Respiratory Distress - Cardiovascular Exam Cardiovascular Exam: absent: Bradycardia, Tachycardia - GI/Abdominal Exam GI & Abdominal Exam: Soft, Tenderness (mild jovanna-incisional TTP). absent: Distended, Guarding, Rebound Additional comments: dressings c/d/i ecchymosis present over L ASIS/iliac crest - Exam Exam: Scrotal Swelling. absent: Testicular Tenderness - Extremities Exam Extremities Exam: Normal Inspection - Neurological Exam Neurological Exam: Alert, Awake, Oriented x3 - Psychiatric Exam Psychiatric exam: Normal Affect, Normal Mood - Skin Skin Exam: Dry, Warm Assessment and Plan - Assessment and Plan (Free Text) Assessment: 21 y/o M POD#3 s/p diagnostic laparoscopy w/ resection of Meckel's diverticulum now c/o scrotal swelling - ADAT - cont pain management - encourage OOB to chair/Amb/IS use - consider urology consult if swelling persists - cleared for discharge once tolerating regular diet. Pt discussed w/ Dr. Rudy Lewis DO PGY2
--- NOTE | 2017-05-08 14:01 | CP.PCM.DIS ---
Provider - Provider Date of Admission: 05/01/17 10:27 Attending physician: Sajan Coello DO Primary care physician: DR Bray Consults: Surgery: Dr Grant GI : Dr Cruz Time Spent in preparation of Discharge (in minutes): 25 Diagnosis - Discharge Diagnosis (1) SBO (small bowel obstruction) Status: Acute (2) Meckels diverticulum Status: Acute (3) Leukocytosis Status: Acute Hospital Course - Lab Results Lab Results: Most Recent Lab Values WBC 10.1 K/uL (4.8-10.8) 05/08/17 05:30 RBC 3.07 Mil/uL (4.40-5.90) L 05/08/17 05:30 Hgb 9.6 g/dL (12.0-18.0) L 05/08/17 05:30 Hct 26.4 % (35.0-51.0) L 05/08/17 05:30 MCV 86.0 fl (80.0-94.0) 05/08/17 05:30 MCH 31.4 pg (27.0-31.0) H 05/08/17 05:30 MCHC 36.5 g/dL (33.0-37.0) 05/08/17 05:30 RDW 12.4 % (11.5-14.5) 05/08/17 05:30 Plt Count 217 K/uL (130-400) 05/08/17 05:30 MPV 8.3 fl (7.2-11.7) 05/05/17 05:45 Neut % (Auto) 77.7 % (50.0-75.0) H 05/05/17 05:45 Lymph % (Auto) 12.0 % (20.0-40.0) L 05/05/17 05:45 Snyder % (Auto) 9.2 % (0.0-10.0) 05/05/17 05:45 Eos % (Auto) 0.2 % (0.0-4.0) 05/05/17 05:45 Baso % (Auto) 0.9 % (0.0-2.0) 05/05/17 05:45 Neut # 8.7 K/uL (1.8-7.0) H 05/05/17 05:45 Lymph # 1.3 K/uL (1.0-4.3) 05/05/17 05:45 Snyder # 1.0 K/uL (0.0-0.8) H 05/05/17 05:45 Eos # 0.0 K/uL (0.0-0.7) 05/05/17 05:45 Baso # 0.1 K/uL (0.0-0.2) 05/05/17 05:45 Neutrophils % (Manual) 85 % (42-75) H 05/01/17 08:25 Band Neutrophils % 1 % (0-2) 05/01/17 08:25 Lymphocytes % (Manual) 10 % (20-50) L 05/01/17 08:25 Monocytes % (Manual) 4 % (0-10) 05/01/17 08:25 Platelet Estimate Normal (NORMAL) 05/01/17 08:25 Large Platelets Present 05/01/17 08:25 Giant Platelets Present 05/01/17 08:25 PT 11.0 Seconds (9.8-13.1) 05/01/17 08:25 INR 1.0 (0.9-1.2) 05/01/17 08:25 APTT 28.0 Seconds (25.6-37.1) 05/01/17 08:25 Sodium 132 mmol/l (132-148) 05/08/17 05:30 Potassium 3.7 MMOL/L (3.6-5.0) 05/08/17 05:30 Chloride 94 mmol/L (98-107) L 05/08/17 05:30 Carbon Dioxide 30 mmol/L (22-30) 05/08/17 05:30 Anion Gap 12 (10-20) 05/08/17 05:30 BUN 9 mg/dl (9-20) 05/08/17 05:30 Creatinine 0.6 mg/dl (0.8-1.5) L 05/08/17 05:30 Est GFR ( Amer) > 60 05/08/17 05:30 Est GFR (Non-Af Amer) > 60 05/08/17 05:30 POC Glucose (mg/dL) 105 mg/dL (65-110) 05/07/17 05:41 Random Glucose 112 mg/dL (75-110) H 05/08/17 05:30 Calcium 8.5 mg/dL (8.4-10.2) 05/08/17 05:30 Total Bilirubin 1.1 mg/dl (0.2-1.3) 05/08/17 05:30 AST 14 U/L (17-59) L 05/08/17 05:30 ALT 36 U/L (21-72) 05/08/17 05:30 Alkaline Phosphatase 47 U/L (38-126) 05/08/17 05:30 Total Protein 6.0 G/DL (6.3-8.2) L 05/08/17 05:30 Albumin 3.4 g/dL (3.5-5.0) L 05/08/17 05:30 Globulin 2.6 gm/dL (2.2-3.9) 05/08/17 05:30 Albumin/Globulin Ratio 1.3 (1.0-2.1) 05/08/17 05:30 Lipase 57 U/L (23-300) 05/01/17 08:25 Urine Color Yellow (YELLOW) 05/01/17 08:25 Urine Clarity Slighty-cloudy (Clear) 05/01/17 08:25 Urine pH 6.0 (5.0-8.0) 05/01/17 08:25 Ur Specific [place] 1.018 (1.003-1.030) 05/01/17 08:25 Urine Protein Negative mg/dL (NEGATIVE) 05/01/17 08:25 Urine Glucose (UA) Neg mg/dL (Normal) 05/01/17 08:25 Urine Ketones Negative mg/dL (NEGATIVE) 05/01/17 08:25 Urine Blood Negative (NEGATIVE) 05/01/17 08:25 Urine Nitrate Negative (NEGATIVE) 05/01/17 08:25 Urine Bilirubin Negative (NEGATIVE) 05/01/17 08:25 Urine Urobilinogen 0.2-1.0 mg/dL (0.2-1.0) 05/01/17 08:25 Ur Leukocyte Esterase Neg Tasha/uL (Negative) 05/01/17 08:25 Urine Microscopic WBC 1 /hpf (0-5) 05/01/17 08:25 Ur Squamous Epith Cells 1 /hpf (0-5) 05/01/17 08:25 Urine Bacteria Rare (<OCC) 05/01/17 08:25 Blood Type O POSITIVE 05/07/17 06:00 Blood Type Confirm O POSITIVE 05/07/17 07:45 Antibody Screen Negative 05/07/17 06:00 BBK History Checked No verified bt 05/07/17 06:00 - Hospital Course Hospital Course: 21 y/o male with no significant PMH, except for 1 episode of SBO almost 10 years ago, came in because of abdominal , pain accompanied by nausea and vomiting. CT of abdomen showed Mechanical small bowel obstruction. Patient was admitted in med/surg, kept NPO , started IVF, pain medication , NGT placed . Surgery and GI consulted NGT accidentally came out and patient refused to have it re inserted . S/p diagnostic Laparoscopy 05/05/17 : Meckel diverticulum resection done . Diet started , tolerated Regular diet. Pain is controlled, passing flatus and had BM. Claered by Surgery for discharge 1. SBO secondary to Meckel's diverticulum s/p diagnostic laparascopy and Meckel diverticulum resection passing flatus and had 3 BM tolerating Regular diet Promote ambulation IVF and pain management incentive spirometry d/c home , ff up with Dr Grant in 1-2 wks 2. Leukocytosis prob reactive, resolved pt afebrile 3. DVt porophylaxis SCD Pt is ambulatory Discharge Exam - Head Exam Head Exam: ATRAUMATIC, NORMAL INSPECTION, NORMOCEPHALIC - Eye Exam Eye Exam: EOMI, Normal appearance, PERRL Pupil Exam: NORMAL ACCOMODATION, PERRL - ENT Exam ENT Exam: Mucous Membranes Moist, Normal Exam, Normal External Ear Exam - Neck Exam Neck exam: Full Rom, Normal Inspection - Respiratory Exam Respiratory Exam: NORMAL BREATHING PATTERN. absent: Rales, Rhonchi, Wheezes, Respiratory Distress - Cardiovascular Exam Cardiovascular Exam: REGULAR RHYTHM, +S1, +S2 - GI/Abdominal Exam GI & Abdominal Exam: Normal Bowel Sounds, Soft - Exam Exam: NORMAL INSPECTION - Extremities Exam Extremities exam: full ROM, normal capillary refill, pedal pulses present Additional comments: no calf tenderness, neg [place] - Back Exam Back exam: FULL ROM. absent: CVA tenderness (L), CVA tenderness (R), vertebral tenderness - Neurological Exam Neurological exam: Alert, CN II-XII Intact, Normal Gait, Oriented x3, Reflexes Normal - Psychiatric Exam Psychiatric exam: Normal Affect, Normal Mood - Skin Skin Exam: Dry, Intact, Normal Color, Warm Discharge Plan - Follow Up Plan Condition: GOOD Disposition: HOME/ ROUTINE Instructions: Bowel Obstruction (DC) Additional Instructions: ff up with Surgery - Dr Grant in 1 wk [facility] Referrals: Sincere Bray [Staff Provider] - Arash Grant MD [Staff Provider] -
== END 2017-05-08 15:05 | disposition home or self-care (01) | DRG 347 ==
LOC: H.ER 07:07 → H.ERHOLD 10:27 → H.MEDSURG1 12:34
PROVIDERS: ADMIT Internal Medicine; ATTEND Internal Medicine
PROC: 0DBB4ZZ Excision of Ileum, Percutaneous Endoscopic Approach (ICD-10-PCS; principal; 2017-05-05 12:15)
DX: Q43.0 Meckel's diverticulum (displaced) (hypertrophic) (principal); K56.2 Volvulus; K56.690 Other partial intestinal obstruction; K50.90 Crohn's disease, unspecified, without complications; D72.829 Elevated white blood cell count, unspecified; N50.89 Other specified disorders of the male genital organs; R42 Dizziness and giddiness; R53.1 Weakness; I95.1 Orthostatic hypotension